=== PATIENT | male | born 1965 | race Caucasian/White ===

== ENCOUNTER 2020-03-04 07:53 | Emergency (ER) | payer OTHER ==
[2020-03-04] MEDS ORDERED: LIDOCAINE 1% INJ 10MG/ML (20 ML MDV) SQ ONE (08:03)
[2020-03-04] MEDS ORDERED: DIPH,PERTUS(ACELL)TETVAC-LF 0.5 ML VIAL IM ONE (08:07)
--- NOTE | 2020-03-04 08:07 | ED ---
Wound/Laceration HPI - General Chief Complaint: Wound/Laceration Stated Complaint: [facility]HS-Finger lac Time Seen by Provider: 03/04/20 08:01 Source: patient, RN notes reviewed, old records reviewed Mode of arrival: ambulatory Limitations: no limitations - History of Present Illness Initial Comments: Patient is a 55 year old male presents to ED for laceration over 5th digit from cutting finger on a knife. Patient works at a local restaurant. Patient has full ROM of finger. Patient is not up-to-date on tetanus vaccine. He reports normal sensation to the finger. - Related Data Allergies Allergy/AdvReac Type Severity Reaction Status Date / Time No Known Allergies Allergy Verified 03/04/20 07:57 Review of Systems ROS Statement: Those systems with pertinent positive or pertinent negative responses have been documented in the HPI. ROS Other: All systems not noted in ROS Statement are negative. Past Medical History Past Medical History: No Reported History History of Any Multi-Drug Resistant Organisms: None Reported Past Surgical History: No Surgical Hx Reported Past Psychological History: No Psychological Hx Reported Smoking Status: Never smoker Past Alcohol Use History: Occasional Past Drug Use History: None Reported General Exam - General Exam Comments Initial Comments: 55 year old male, no distress. Limitations: no limitations General appearance: alert, in no apparent distress Head exam: Present: atraumatic, normocephalic, normal inspection Eye exam: Present: normal appearance, PERRL, EOMI. Absent: scleral icterus, conjunctival injection, periorbital swelling ENT exam: Present: normal exam, mucous membranes moist Neck exam: Present: normal inspection. Absent: tenderness, meningismus, lymphadenopathy Respiratory exam: Present: normal lung sounds bilaterally. Absent: respiratory distress, wheezes, rales, rhonchi, stridor Cardiovascular Exam: Present: regular rate, normal rhythm, normal heart sounds. Absent: systolic murmur, diastolic murmur, rubs, gallop, clicks GI/Abdominal exam: Present: soft, normal bowel sounds. Absent: distended, tenderness, guarding, rebound, rigid Extremities exam: Present: normal inspection, full ROM, normal capillary refill. Absent: tenderness, pedal edema, joint swelling, calf tenderness Left Elbow exam: Present: normal inspection, full ROM Forearm Wrist exam: Present: normal inspection, full ROM Hand Wrist exam: Present: normal inspection, full ROM, laceration (overPIP of 5th digit) Neuro motor exam: Present: wrist extension intact, thumb opposition intact, thumb IP flexion intact, thumb adduction intact, fingers 2-5 abduction intact Vascular: Present: normal capillary refill Back exam: Present: normal inspection Neurological exam: Present: alert, oriented X3, CN II-XII intact Psychiatric exam: Present: normal affect, normal mood Course Vital Signs 03/04/20 07:55 Temperature 98.2 F Pulse Rate 100 Respiratory 18 Rate Blood Pressure 149/83 O2 Sat by Pulse 100 Oximetry Procedures - Laceration Laceration #1 Site: hand (5th digit) Size (cm): 1 Description: linear Depth: simple, single layer Anesthetic Used: lidocaine 1% Anesthesia Technique: local infiltration Amount (mls): 1 Pre-repair: wound explored, irrigated extensively Type of Sutures: nylon Size of Sutures: 5-0 Number of Sutures: 3 Technique: simple, interrupted Patient Tolerated Procedure: well, no complications Medical Decision Making - Medical Decision Making 55-year-old male presents for his arm through the laceration over the left fifth digit. Patient reports that he cut it on a knife out work. He works at a local [email or web address]. He has full range of motion of the finger. He normal sensation distally. Laceration was cleansed and irrigated with saline and iodine solution. Patient's laceration was anesthetized and closed with 3 simple rapid sutures. Patient tolerated procedure well. Discussed monitoring for any signs of infection causing redness swelling or drainage. Discussed return parameters. All questions answered. Disposition Clinical Impression: Finger laceration Disposition: HOME SELF-CARE Condition: Good Instructions (If sedation given, give patient instructions): Care For Your Stitches (ED) Additional Instructions: Please return to the emergency room in 7-10 days to have sutures removed. Please leave wound covered for the first 24-48 hours and then leave open to air after that time. Please use clean soap and water to clean the suture area to prevent scabbing over the top of your sutures. Please watch for any signs of infection which may include but not limited to increased pain, swelling, redness, fever or chills. Please return to the emergency room if any signs of infection do occur. Please return to the emergency room for any other concerns or complications. Is patient prescribed a controlled substance at d/c from ED?: No Referrals: None,Stated [Primary Care Provider] - 1-2 days Time of Disposition: 08:25
[2020-03-04 10:40] VITALS: BP 149/83; PULSE 100; RESP 18; TEMP 98.2
== END 2020-03-04 08:32 | disposition home or self-care (01) ==
LOC: EC 07:53
DX: S61.217A Laceration without foreign body of left little finger without damage to nail, initial encounter (principal); Z23 Encounter for immunization; W26.0XXA Contact with knife, initial encounter; Y92.511 Restaurant or cafe as the place of occurrence of the external cause; Y93.G1 Activity, food preparation and clean up; Y99.0 Civilian activity done for income or pay
CPT/HCPCS: 90715; 99283; 12001; 90471; J2001

== ENCOUNTER 2021-07-06 08:33 | Inpatient (IN) | payer OTHER ==
[2021-07-06] MEDS ORDERED: NITROGLYCERIN OINT 1 INCH/GM PACKET TOPICAL STA (08:45)
[2021-07-06] MEDS ORDERED: SODIUM CHLORIDE 0.9% 500 ML 500 ML IV STA (08:45)
[2021-07-06] MEDS ORDERED: ASPIRIN 81 MG PO STA (08:45)
--- NOTE | 2021-07-06 08:49 | ED ---
General Adult HPI - General Chief complaint: Chest Pain Stated complaint: Chest pain, knee pain Time Seen by Provider: 07/06/21 08:35 Source: patient, RN notes reviewed, old records reviewed Mode of arrival: ambulatory Limitations: no limitations - History of Present Illness Initial comments: This is a 56-year-old male who presents emergency Department states he has no medical problems he takes no medicines. Patient states for the last 2 weeks she's been having generalized achiness but over the last 3 days have significant shortness of breath and chest pain. Patient denies any radiation of the pain. Patient states he did vomit a couple times but is no longer nauseated. Patient states he also had an episode of diarrhea. Patient denies any recent chills but states he thought he might have a fever but never took his temperature. Patient states he only has a slight cough. Patient states he has a history of smoking but quit 16 years ago. Patient denies any headache patient denies numbness weakness. Patient denies lightheadedness dizziness. Patient denies any near syncopal episode. Patient denies any swelling to legs or calf tenderness. Patient is a poor historian he is very vague about when his symptoms started what they feel light. - Related Data Home Medications Medication Instructions Recorded Confirmed No Known Home Medications 07/06/21 07/06/21 Allergies Allergy/AdvReac Type Severity Reaction Status Date / Time No Known Allergies Allergy Verified 07/06/21 09:54 Review of Systems ROS Statement: Those systems with pertinent positive or pertinent negative responses have been documented in the HPI. ROS Other: All systems not noted in ROS Statement are negative. Past Medical History Past Medical History: No Reported History History of Any Multi-Drug Resistant Organisms: None Reported Past Surgical History: No Surgical Hx Reported Past Psychological History: No Psychological Hx Reported Smoking Status: Never smoker Past Alcohol Use History: Occasional Past Drug Use History: None Reported General Exam - General Exam Comments Initial Comments: GENERAL: Patient is well-developed and well-nourished. Patient is nontoxic and well- hydrated and is in mild distress. ENT: Neck is soft and supple. No significant lymphadenopathy is noted. Oropharynx is clear. Moist mucous membranes. Neck has full range of motion without eliciting any pain. EYES: The sclera were anicteric and conjunctiva were pink and moist. Extraocular movements were intact and pupils were equal round and reactive to light. Eyelids were unremarkable. PULMONARY: Unlabored respirations. Good breath sounds bilaterally. No audible rales rhonchi or wheezing was noted. CARDIOVASCULAR: There is a regular rate and rhythm without any murmurs gallops or rubs. ABDOMEN: Soft and nontender with normal bowel sounds. SKIN: Skin is clear with no lesions or rashes and otherwise unremarkable. NEUROLOGIC: Patient is alert and oriented x3. Cranial nerves II through XII are grossly intact. Motor and sensory are also intact. Normal speech, volume and content. Symmetrical smile. MUSCULOSKELETAL: Normal extremities with adequate strength and full range of motion. LYMPHATICS: No significant lymphadenopathy is noted PSYCHIATRIC: Normal psychiatric evaluation. Limitations: no limitations Course Vital Signs 07/06/21 07/06/21 07/06/21 08:35 09:30 10:00 Temperature 98.4 F Pulse Rate 98 86 85 Respiratory 18 15 18 Rate Blood Pressure 168/93 141/90 137/99 O2 Sat by Pulse 98 97 97 Oximetry Medical Decision Making - Medical Decision Making EKG shows normal sinus rhythm at 90 bpm UT interval is 156 QRS is 80 QT interval 352 QTC is 4:30. Patient's EKG shows no ST segment elevation or depression. Chest x-ray shows no acute abnormality. Patient's blood pressure was elevated slightly to give 10 of hydralazine. Patient was also very anxious but since I gave him 1 of Ativan. I spoke with some physicians agreed to admit the patient admitted the patient wrote admitting orders. - Lab Data Result diagrams: 07/06/21 09:00 07/06/21 09:00 Lab Results 07/06/21 07/06/21 07/06/21 Range/Units 09:00 09:00 09:00 WBC 5.9 (3.8-10.6) k/uL RBC 4.11 L (4.30-5.90) m/uL Hgb 13.4 (13.0-17.5) gm/dL Hct 39.9 (39.0-53.0) % MCV 97.0 (80.0-100.0) fL MCH 32.7 (25.0-35.0) pg MCHC 33.7 (31.0-37.0) g/dL RDW 13.7 (11.5-15.5) % Plt Count 289 (150-450) k/uL MPV 8.2 Neutrophils % 51 % Lymphocytes % 30 % Monocytes % 6 % Eosinophils % 9 % Basophils % 1 % Neutrophils # 3.0 (1.3-7.7) k/uL Lymphocytes # 1.8 (1.0-4.8) k/uL Monocytes # 0.4 (0-1.0) k/uL Eosinophils # 0.6 (0-0.7) k/uL Basophils # 0.0 (0-0.2) k/uL PT 9.7 (9.0-12.0) sec INR 0.9 (<1.2) APTT 25.7 (22.0-30.0) sec D-Dimer <0.17 (<0.60) mg/L FEU Sodium 126 L (137-145) mmol/L Potassium 4.5 (3.5-5.1) mmol/L Chloride 96 L (98-107) mmol/L Carbon Dioxide 17 L (22-30) mmol/L Anion Gap 13 mmol/L BUN 8 L (9-20) mg/dL Creatinine 0.57 L (0.66-1.25) mg/dL Est GFR (CKD-EPI)AfAm >90 (>60 ml/min/1.73 sqM) Est GFR (CKD-EPI)NonAf >90 (>60 ml/min/1.73 sqM) Glucose 110 H (74-99) mg/dL Calcium 9.1 (8.4-10.2) mg/dL Magnesium 1.7 (1.6-2.3) mg/dL Total Bilirubin 0.7 (0.2-1.3) mg/dL AST 51 (17-59) U/L ALT 32 (4-49) U/L Alkaline Phosphatase 52 (38-126) U/L Troponin I (0.000-0.034) ng/mL Total Protein 7.5 (6.3-8.2) g/dL Albumin 4.4 (3.5-5.0) g/dL Coronavirus (PCR) (Not Detectd) 07/06/21 07/06/21 Range/Units 09:00 09:00 WBC (3.8-10.6) k/uL RBC (4.30-5.90) m/uL Hgb (13.0-17.5) gm/dL Hct (39.0-53.0) % MCV (80.0-100.0) fL MCH (25.0-35.0) pg MCHC (31.0-37.0) g/dL RDW (11.5-15.5) % Plt Count (150-450) k/uL MPV Neutrophils % % Lymphocytes % % Monocytes % % Eosinophils % % Basophils % % Neutrophils # (1.3-7.7) k/uL Lymphocytes # (1.0-4.8) k/uL Monocytes # (0-1.0) k/uL Eosinophils # (0-0.7) k/uL Basophils # (0-0.2) k/uL PT (9.0-12.0) sec INR (<1.2) APTT (22.0-30.0) sec D-Dimer (<0.60) mg/L FEU Sodium (137-145) mmol/L Potassium (3.5-5.1) mmol/L Chloride (98-107) mmol/L Carbon Dioxide (22-30) mmol/L Anion Gap mmol/L BUN (9-20) mg/dL Creatinine (0.66-1.25) mg/dL Est GFR (CKD-EPI)AfAm (>60 ml/min/1.73 sqM) Est GFR (CKD-EPI)NonAf (>60 ml/min/1.73 sqM) Glucose (74-99) mg/dL Calcium (8.4-10.2) mg/dL Magnesium (1.6-2.3) mg/dL Total Bilirubin (0.2-1.3) mg/dL AST (17-59) U/L ALT (4-49) U/L Alkaline Phosphatase (38-126) U/L Troponin I <0.012 (0.000-0.034) ng/mL Total Protein (6.3-8.2) g/dL Albumin (3.5-5.0) g/dL Coronavirus (PCR) Not Detected (Not Detectd) Disposition Clinical Impression: Chest pain, Hypertensive urgency Disposition: ADMITTED IP TO THIS [facility] Referrals: None,Stated [Primary Care Provider] - 1-2 days Time of Disposition: 11:04
--- NOTE | 2021-07-06 09:35 | XR ---
EXAMINATION TYPE: XR chest 2V DATE OF EXAM: 07/06/2021 COMPARISON: NONE TECHNIQUE: PA and lateral views submitted. HISTORY: Chest pain FINDINGS: The lungs are clear and there is no pneumothorax, pleural effusion, or focal pneumonia. Heart size normal. No overt failure. Hypertrophic change of the spine. IMPRESSION: 1. No acute process.
[2021-07-06 09:36] LABS: Basophils % (A) 1 %; Eosinophils # (A) 0.6 k/uL (0-0.7); Eosinophils % (A) 9 %; HCT 39.9 % (39.0-53.0); HGB 13.4 gm/dL (13.0-17.5); Lymphocytes # (A) 1.8 k/uL (1.0-4.8); Lymphocytes % (A) 30 %; MCH 32.7 pg (25.0-35.0); MCHC 33.7 g/dL (31.0-37.0); Mean Platelet Volume 8.2; Monocytes # (A) 0.4 k/uL (0-1.0); Monocytes % (A) 6 %; Neutrophils % (A) 51 %; Platelet Count 289 k/uL (150-450); RBC 4.11 m/uL (4.30-5.90); RDW 13.7 % (11.5-15.5); WBC 5.9 k/uL (3.8-10.6)
[2021-07-06 09:52] LABS: INR 0.9 (<1.2); Partial Thromboplastin Time 25.7 sec (22.0-30.0); Prothrombin Time 9.7 sec (9.0-12.0)
[2021-07-06 10:01] LABS: ALT 32 U/L (4-49); African American GFR (CKD) >90 (>60 ml/min/1.73 sqM); Albumin 4.4 g/dL (3.5-5.0); Anion Gap 13 mmol/L; Blood Urea Nitrogen 8 mg/dL (9-20); Calcium 9.1 mg/dL (8.4-10.2); Carbon Dioxide 17 mmol/L (22-30); Chloride 96 mmol/L (98-107); Glucose 110 mg/dL (74-99); Non-African American GFR(CKD) >90 (>60 ml/min/1.73 sqM); Sodium 126 mmol/L (137-145); Total Bilirubin 0.7 mg/dL (0.2-1.3); Total Protein 7.5 g/dL (6.3-8.2)
[2021-07-06 10:12] LABS: Potassium 4.5 mmol/L (3.5-5.1)
[2021-07-06 10:13] LABS: AST 51 U/L (17-59); Alkaline Phosphatase 52 U/L (38-126); Magnesium 1.7 mg/dL (1.6-2.3)
[2021-07-06] MEDS ORDERED: LORazepam 2 MG/ML INJ IV STA (11:02)
[2021-07-06] MEDS ORDERED: hydrALAZINE HCL 20 MG/ML 1 ML VIAL IVP STA (11:02)
[2021-07-06] MEDS ORDERED: NITROGLYCERIN SL TABS 0.4 MG TAB SUBLINGUAL PRN (11:04)
[2021-07-06] MEDS ORDERED: ACETAMINOPHEN TAB 325 MG TAB PO PRN (14:01)
[2021-07-06] MEDS ORDERED: NALOXONE 0.4 MG/ML 1 ML VIAL IV PRN (14:01)
[2021-07-06] MEDS ORDERED: ONDANSETRON 4 MG/2 ML VIAL IVP PRN (14:01)
--- NOTE | 2021-07-06 14:01 | P.HPIM ---
History of Present Illness H&P Date: 07/06/21 Chief Complaint: chest pain and sob 56-year-old male with no known PMH presenting to the ER due to chest pain and sob. Patient states for the last 2 weeks she's been having generalized achiness but over the last 3 days have significant shortness of breath and chest pain. Pain occured while he is at work. Patient states he did vomit a couple times but is no longer nauseated. Also had an episode of diarrhea. He is a poor historian and hard to get a history from. Denied having a fever. Has a little cough not sure if new. No lightheadedness or syncope. Also admits to left knee weakness, states that he cannot stand on it. No swelling or pain. Evaluation in the emergency department revealed slight hypertension with blood pressure of 140-150 systolic. Rest of vitals were okay. Labs significant for low sodium at 126. Chloride 96, bicarb 17. CBC within normal limits. Coag's normal. Chest x-ray and EKG were also normal. Review of Systems Complete review of system performed, pertinent positives per HPI, otherwise negative Past Medical History Past Medical History: No Reported History History of Any Multi-Drug Resistant Organisms: None Reported Past Surgical History: No Surgical Hx Reported Past Psychological History: No Psychological Hx Reported Smoking Status: Never smoker Past Alcohol Use History: Occasional Past Drug Use History: None Reported Medications and Allergies Home Medications Medication Instructions Recorded Confirmed Type No Known Home Medications 07/06/21 07/06/21 History Allergies Allergy/AdvReac Type Severity Reaction Status Date / Time No Known Allergies Allergy Verified 07/06/21 09:54 Physical Exam Vitals: Vital Signs Temp Pulse Resp BP Pulse Ox 07/06/21 12:00 92 17 159/99 98 07/06/21 11:30 90 15 149/115 98 07/06/21 11:00 84 17 152/98 97 07/06/21 10:00 85 18 137/99 97 07/06/21 09:30 86 15 141/90 97 07/06/21 08:35 98.4 F 98 18 168/93 98 Intake and Output 07/05/21 07/06/21 07/06/21 22:59 06:59 14:59 Other: Weight 65.771 kg Constitutional: No acute distress, conversant, pleasant Eyes:Anicteric sclerae, moist conjunctiva, no lid-lag, PERRLA, ENMT: Oropharynx clear, no erythema, exudates Neck: Supple, FROM, no masses, or JVD, No carotid bruits, No thyromegaly Lungs: Clear to auscultation, Clear to percussion, Normal respiratory effort, no accessory muscle use Cardiovascular: Heart regular in rate and rhythm, No murmurs, gallops, or rubs, No peripheral edema Abdominal: Soft, Nontender, no guarding, rebound or rigidity, Normoactive bowel sounds, No hepatomegaly, No splenomegaly, No palpable mass Skin: Normal temperature, tone, texture, turgor, no induration, No subcutaneous nodules, No rash, lesions, No ulcers Extremities: No digital cyanosis, No clubbing, Pedal pulses intact and symmetrical, Radial pulses intact and symmetrical, No calf tenderness Psychiatric: Alert and oriented to person, place and time, appropriate affect, intact judgement Neuro: Muscles Strength 5/5 in all 4 extremities, Sensation to light touch grossly present throughout, Cranial nerves II-XII grossly intact, no focal sensory deficits Constitutional: No acute distress, conversant, pleasant Eyes:Anicteric sclerae, moist conjunctiva, no lid-lag, PERRLA, ENMT: Oropharynx clear, no erythema, exudates Neck: Supple, FROM, no masses, or JVD, No carotid bruits, No thyromegaly Lungs: Clear to auscultation, Clear to percussion, Normal respiratory effort, no accessory muscle use Cardiovascular: Heart regular in rate and rhythm, No murmurs, gallops, or rubs, No peripheral edema Abdominal: Soft, Nontender, no guarding, rebound or rigidity, Normoactive bowel sounds, No hepatomegaly, No splenomegaly, No palpable mass Skin: Normal temperature, tone, texture, turgor, no induration, No subcutaneous nodules, No rash, lesions, No ulcers Extremities: No digital cyanosis, No clubbing, Pedal pulses intact and symmetrical, Radial pulses intact and symmetrical, No calf tenderness Psychiatric: Alert and oriented to person, place and time, appropriate affect, intact judgement Neuro: Muscles Strength 5/5 in all 4 extremities, Sensation to light touch grossly present throughout, Cranial nerves II-XII grossly intact, no focal sensory deficits Results CBC & Chem 7: 07/06/21 09:00 07/06/21 09:00 Labs: Abnormal Lab Results - Last 24 Hours (Table) 07/06/21 07/06/21 Range/Units 09:00 09:00 RBC 4.11 L (4.30-5.90) m/uL Sodium 126 L (137-145) mmol/L Chloride 96 L (98-107) mmol/L Carbon Dioxide 17 L (22-30) mmol/L BUN 8 L (9-20) mg/dL Creatinine 0.57 L (0.66-1.25) mg/dL Glucose 110 H (74-99) mg/dL Assessment and Plan Plan: Chest pain or shortness of breath Cycle troponins Consult cardiology Telemetry Hyponatremia Check plasma and urine osmolalities Check serum sodium Left knee weakness Order x-ray of the left knee Admit to inpatient, expected length of stay more than 2 midnights
[2021-07-06] MEDS: NITROGLYCERIN OINT 1 INCH/GM PACKET TOPICAL SCH ×2 (15:18→18:36)
[2021-07-06] MEDS ORDERED: LABETALOL 5 MG/ML VIAL MDV IVP STA (18:06)
[2021-07-07] MEDS: NITROGLYCERIN OINT 1 INCH/GM PACKET TOPICAL SCH ×3 (01:39→11:26)
[2021-07-07 02:31] VITALS: RESP 18
[2021-07-07 06:38] LABS: Basophils % (A) 1 %; Eosinophils # (A) 0.4 k/uL (0-0.7); Eosinophils % (A) 5 %; HCT 43.2 % (39.0-53.0); HGB 14.1 gm/dL (13.0-17.5); Lymphocytes # (A) 1.3 k/uL (1.0-4.8); Lymphocytes % (A) 17 %; MCH 32.1 pg (25.0-35.0); MCHC 32.7 g/dL (31.0-37.0); Mean Platelet Volume 7.9; Monocytes # (A) 0.5 k/uL (0-1.0); Monocytes % (A) 6 %; Neutrophils # (A) 5.3 k/uL (1.3-7.7); Neutrophils % (A) 69 %; Platelet Count 286 k/uL (150-450); RBC 4.41 m/uL (4.30-5.90); RDW 13.8 % (11.5-15.5); WBC 7.7 k/uL (3.8-10.6)
[2021-07-07 06:58] LABS: African American GFR (CKD) >90 (>60 ml/min/1.73 sqM); Anion Gap 8 mmol/L; Blood Urea Nitrogen 8 mg/dL (9-20); Calcium 9.4 mg/dL (8.4-10.2); Carbon Dioxide 21 mmol/L (22-30); Chloride 102 mmol/L (98-107); Glucose 130 mg/dL (74-99); Magnesium 2.1 mg/dL (1.6-2.3); Non-African American GFR(CKD) >90 (>60 ml/min/1.73 sqM); Phosphorus 3.6 mg/dL (2.5-4.5); Potassium 4.5 mmol/L (3.5-5.1); Sodium 131 mmol/L (137-145)
[2021-07-07 07:44] VITALS: TEMP 98
[2021-07-07] MEDS ORDERED: ASPIRIN 325 MG TAB PO SCH (09:00)
--- NOTE | 2021-07-07 11:00 | ECHOF ---
Referral Reason:chest pain MEASUREMENTS -------- HEIGHT: 170.2 cm WEIGHT: 65.8 kg BP: RVIDd: 3.1 cm (< 3.3) IVSd: 1.2 cm (0.6 - 1.1) LVIDd: 3.5 cm (3.9 - 5.3) LVPWd: 1.3 cm (0.6 - 1.1) IVSs: 1.5 cm LVIDs: 3.1 cm LVPWs: 1.2 cm LA Diam: 3.0 cm (2.7 - 3.8) LAESV Index (A-L): 16.03 ml/m Ao Diam: 3.4 cm (2.0 - 3.7) AV Cusp: 1.5 cm (1.5 - 2.6) LA Diam: 3.1 cm (2.7 - 3.8) MV EXCURSION: 19.089 mm (> 18.000) MV EF SLOPE: 103 mm/s (70 - 150) EPSS: 0.8 cm MV E Eh: 0.51 m/s MV DecT: 241 ms MV A Eh: 1.22 m/s MV E/A Ratio: 0.42 RAP: 5.00 mmHg RVSP: 14.14 mmHg FINDINGS -------- Sinus rhythm. This was a technically adequate study. The left ventricular size is normal. There is borderline concentric left ventricular hypertrophy. Overall left ventricular systolic function is normal with, an EF between 55 - 60 %. The diastolic filling pattern is normal for the age of the patient 6.52. The right ventricle is normal in size. Normal LA size by volume 22+/-6 ml/m2. The right atrial size is normal. The aortic valve is trileaflet, and appears structurally normal. No aortic stenosis or regurgitation. The mitral valve is normal. Mild mitral regurgitation is present. The tricuspid valve appears structurally normal. Mild tricuspid regurgitation present. Right vent ricular systolic pressure is normal at < 35 mmHg. The pulmonic valve was not well visualized. The aortic root size is normal. There is no pericardial effusion. CONCLUSIONS -------- 1. There is borderline concentric left ventricular hypertrophy. 2. Overall left ventricular systolic function is normal with, an EF between 55 - 60 %. 3. Normal LA size by volume 22+/-6 ml/m2. 4. The aortic valve is trileaflet, and appears structurally normal. No aortic stenosis or regurgitati on. 5. Mild mitral regurgitation is present. 6. Mild tricuspid regurgitation present. 7. There is no pericardial effusion. MANAGER [employer]: Joy Mccloud RDCS
--- NOTE | 2021-07-07 11:02 | P.CRDCN ---
History of Present Illness Consult date: 07/07/21 History of present illness: This is a 56-year-old gentleman with no significant past medical history who was admitted to the hospital with complaints of chest pain and shortness of breath. Patient complains that history a lot of hard work and that is too much. His symptoms are mostly exertional in nature. He is found to be hypertensive on admission, requiring IV labetalol. Patient is also found hyponatremic. His EKGs did not reveal any acute changes. Chest x-ray did not reveal any significant abnormalities. His cardiac enzymes are negative. Patient doesn't have any previous history of coronary artery disease, cardiac arrhythmia or CHF. On physical examination, patient does have some expiratory rhonchi. The etiology of symptoms is not clear. We are going to get an echocardiogram. If echo function is normal, I would recommend that patient have pulmonary evaluation because she doesn't have some rhonchi in the may have underlying COPD. He also required a stress test which can be done as an outpatient. Continue measures to correct his hyponatremia Review of Systems As per the chart Past Medical History Past Medical History: No Reported History History of Any Multi-Drug Resistant Organisms: None Reported Past Surgical History: No Surgical Hx Reported Past Psychological History: No Psychological Hx Reported Smoking Status: Never smoker Past Alcohol Use History: Occasional Additional Past Alcohol Use History / Comment(s): occasional alcohol use Past Drug Use History: Marijuana Additional Drug Use History / Comment(s): occasional marijuana use Medications and Allergies Home Medications Medication Instructions Recorded Confirmed Type No Known Home Medications 07/06/21 07/06/21 History Allergies Allergy/AdvReac Type Severity Reaction Status Date / Time No Known Allergies Allergy Verified 07/06/21 09:54 Physical Exam Vitals: Vital Signs Temp Pulse Pulse Resp BP BP Pulse Ox 07/07/21 08:38 97 07/07/21 07:43 98.0 F 94 18 158/91 98 07/07/21 04:30 98 F 87 18 157/87 98 07/06/21 23:00 98 F 89 18 140/82 98 07/06/21 20:23 98.6 F 96 19 151/83 98 07/06/21 18:37 98 18 149/99 98 07/06/21 17:26 98.8 F 114 H 18 171/101 97 07/06/21 15:00 110 H 19 155/95 97 07/06/21 14:30 105 H 13 159/92 97 07/06/21 14:00 105 H 22 156/90 97 07/06/21 13:30 103 H 15 152/89 96 07/06/21 12:00 92 17 159/99 98 07/06/21 11:30 90 15 149/115 98 07/06/21 11:00 84 17 152/98 97 Intake and Output 07/06/21 07/07/21 07/07/21 22:59 06:59 14:59 Intake Total 0 Balance 0 Intake: Oral 0 Other: Voiding Method Toilet Toilet Toilet # Voids 1 1 # Bowel Movements 1 Weight 65.771 kg GENERAL EXAM: Patient is alert and oriented and doesn't appear to be in any acute distress HEENT: Normocephalic. Normal reaction of pupils, equal size, normal range of ex traocular motion. No erythema or exudates in the throat. NECK: No masses, no nuchal rigidity. CHEST: No chest wall deformity. LUNGS: Mild diffuse rhonchi HEART: S1 and S2 normal with no audible mumurs or gallops. Regular rhythm, femorals equal on both sides.. ABDOMEN: No hepatosplenomegaly, normal bowel sounds, no guarding or rigidity. SKIN: No rashes CENTRAL NERVOUS SYSTEM: No focal deficits. EXTREMITIES: No cyanosis, clubbing or edema. Results 07/07/21 06:04 07/07/21 06:04 Cardiac Enzymes 07/06/21 07/06/21 Range/Units 12:22 15:10 Troponin I <0.012 <0.012 (0.000-0.034) ng/mL CBC 07/07/21 Range/Units 06:04 WBC 7.7 (3.8-10.6) k/uL RBC 4.41 (4.30-5.90) m/uL Hgb 14.1 (13.0-17.5) gm/dL Hct 43.2 (39.0-53.0) % Plt Count 286 (150-450) k/uL Comprehensive Metabolic Panel 07/07/21 Range/Units 06:04 Sodium 131 L (137-145) mmol/L Potassium 4.5 (3.5-5.1) mmol/L Chloride 102 (98-107) mmol/L Carbon Dioxide 21 L (22-30) mmol/L BUN 8 L (9-20) mg/dL Creatinine 0.65 L (0.66-1.25) mg/dL Glucose 130 H (74-99) mg/dL Calcium 9.4 (8.4-10.2) mg/dL Current Medications Generic Name Dose Route Start Last Admin Trade Name Freq PRN Reason Stop Dose Admin Acetaminophen 650 mg 07/06/21 14:01 Acetaminophen Tab 325 Mg Tab PO Q6HR PRN Mild Pain or Fever > 100.5 Aspirin 325 mg 07/07/21 09:00 07/07/21 07:41 Aspirin 325 Mg Tab PO 325 mg DAILY KATE Administration Naloxone HCl 0.2 mg 07/06/21 14:01 Naloxone 0.4 Mg/Ml 1 Ml Vial IV Q2M PRN Opioid Reversal Nitroglycerin 0.4 mg 07/06/21 11:04 Nitroglycerin Sl Tabs 0.4 Mg Tab SUBLINGUAL Q5M PRN Chest Pain Nitroglycerin 1 inch 07/06/21 12:00 07/07/21 06:27 Nitroglycerin Oint 1 Inch/Gm Packet TOPICAL Not Given Q6HR KATE Ondansetron HCl 4 mg 07/06/21 14:01 07/06/21 17:29 Ondansetron 4 Mg/2 Ml Vial IVP 4 mg Q8HR PRN Administration Nausea And Vomiting Intake and Output 07/06/21 07/07/21 07/07/21 22:59 06:59 14:59 Intake Total 0 Balance 0 Intake: Oral 0 Other: Voiding Method Toilet Toilet Toilet # Voids 1 1 # Bowel Movements 1 Weight 65.771 kg 07/07/21 06:04 07/07/21 06:04 EKG Interpretations (text) Sinus rhythm Assessment and Plan (1) Chest pain Current Visit: Yes Status: Acute Code(s): R07.9 - CHEST PAIN, UNSPECIFIED SNOMED Code(s): 11827292 (2) Hypertensive urgency Current Visit: Yes Status: Acute Code(s): I16.0 - HYPERTENSIVE URGENCY SNOMED Code(s): 769873828 Plan: Start him on accommodation of YA inhibitor and calcium channel benjamin for control of his blood pressure. Echocardiogram. Pulmonary evaluation. Stress test which could be done as an outpatient
[2021-07-07] MEDS ORDERED: amLODIPine 5 MG TAB PO SCH (11:15)
[2021-07-07] MEDS ORDERED: METOPROLOL TARTRATE 25 MG TAB PO SCH (11:15)
[2021-07-07 11:22] LABS: Chol/HDL Ratio 2.75 Ratio; LDL Cholesterol,Calculated 146.1 mg/dL (0.0-131.0); VLDL Calculation 12.46 mg/dL (5.00-40.00)
[2021-07-07 11:28] VITALS: BP 145/83; PULSE 82
--- NOTE | 2021-07-07 13:56 | P.DS ---
Providers Date of admission: 07/06/21 11:06 Expected date of discharge: 07/07/21 Attending physician: Randi Shetty MD Consults: 07/06/21 11:04 Consult Physician Urgent Consulting Provider: [facility] Consult Reason/Comments: Chest pain, hypertensive urgency Do you want consulting provider notified?: Yes Primary care physician: Stated None Hospital Course: 56-year-old male with no known PMH presenting to the ER due to chest pain and sob. Patient states for the last 2 weeks she's been having generalized achiness but over the last 3 days have significant shortness of breath and chest pain. Pain occured while he is at work. Patient states he did vomit a couple times but is no longer nauseated. Also had an episode of diarrhea. He is a poor historian and hard to get a history from. Denied having a fever. Had a little cough not sure if new. No lightheadedness or syncope. Also admits to left knee weakness, states that he cannot stand on it. No swelling or pain. Evaluation in the emergency department revealed slight hypertension with blood pressure of 140-150 systolic. Rest of vitals were okay. Labs significant for low sodium at 126. Chloride 96, bicarb 17. CBC within normal limits. Coag's normal. Chest x-ray and EKG were also normal. Patient was admitted, was seen by cardiology. Cardiology recommended doing an echocardiogram which showed ejection fraction 55%. For hypertension he was started on Norvasc and Lopressor. Troponin was cycled, was negative. Cardiopulmonary recommended pulmonary evaluation for possible COPD causing his shortness of breath. Cardiology also advised outpatient stress testing. He is currently asymptomatic. ACS was ruled out. Will be discharged home in a stable condition. Instructions to follow-up with pulmonary and cardiology as well as primary care physician were given to the patient. Plan - Discharge Summary Discharge Rx Participant: Yes New Discharge Prescriptions: New amLODIPine [Norvasc] 5 mg PO DAILY 30 Days #30 tab Metoprolol Tartrate [Lopressor] 25 mg PO BID 30 Days #60 tab Discharge Medication List Metoprolol Tartrate [Lopressor] 25 mg PO BID 30 Days #60 tab 07/07/21 [Rx] amLODIPine [Norvasc] 5 mg PO DAILY 30 Days #30 tab 07/07/21 [Rx] Follow up Appointment(s)/Referral(s): None,Stated [Primary Care Provider] - 1-2 days Eric Palmer MD [STAFF PHYSICIAN] - 1 Week Anders Winkler MD [STAFF PHYSICIAN] - 1 Week Abran Wellington [STAFF PHYSICIAN] - 1 Week
== END 2021-07-07 14:35 | disposition home or self-care (01) | DRG 305 ==
LOC: EC 08:33 → 3SCARD 11:06
PROVIDERS: ADMIT Internal Medicine; ATTEND Internal Medicine
DX: I16.0 Hypertensive urgency (principal); E87.1 Hypo-osmolality and hyponatremia; R79.89 Other specified abnormal findings of blood chemistry; R07.9 Chest pain, unspecified; I10 Essential (primary) hypertension; R11.2 Nausea with vomiting, unspecified; R53.1 Weakness; Z87.891 Personal history of nicotine dependence; Z20.822 Contact with and (suspected) exposure to COVID-19
CPT/HCPCS: 36415; 71046; 80048; 80053; 80061; 83735; 83930; 84100; 84484; 85025; 85379; 85610; 85730; 87635; 93005; 93306; 96360; 96361; 99285

== ENCOUNTER 2022-01-24 07:28 | Observation (INO) | payer OTHER ==
[2022-01-24] MEDS ORDERED: ASPIRIN 81 MG PO STA (07:47)
[2022-01-24] MEDS ORDERED: NITROGLYCERIN SL TABS 0.4 MG TAB SUBLINGUAL STA ×3 (07:47)
--- NOTE | 2022-01-24 07:49 | ED ---
General Adult HPI - General Chief complaint: Chest Pain Stated complaint: Chest pain Time Seen by Provider: 01/24/22 07:40 Source: patient, RN notes reviewed Mode of arrival: wheelchair Limitations: no limitations - History of Present Illness Initial comments: Patient is a pleasant 56-year-old male presenting to the emergency Department with chest discomfort. Onset of symptoms was around a week ago. Discomfort is rated 6/10. Discomfort feels like tightness with radiation to the left arm. Patient has some associated dyspnea. Patient has been sweaty at times. No nausea. Patient did have similar symptoms around a year ago and was told he had a mild heart attack. No leg pain or leg swelling. - Related Data Home Medications Medication Instructions Recorded Confirmed Ainsley Back & Body 1 - 2 tab PO QID PRN 01/24/22 01/24/22 Ibuprofen [Advil] 200 - 400 mg PO QID PRN 01/24/22 01/24/22 Allergies Allergy/AdvReac Type Severity Reaction Status Date / Time No Known Allergies Allergy Verified 01/24/22 08:53 Review of Systems ROS Statement: Those systems with pertinent positive or pertinent negative responses have been documented in the HPI. ROS Other: All systems not noted in ROS Statement are negative. Constitutional: Denies: fever Eyes: Denies: eye pain ENT: Denies: ear pain Respiratory: Reports: as per HPI. Denies: cough Cardiovascular: Reports: as per HPI, chest pain Endocrine: Denies: fatigue Gastrointestinal: Denies: abdominal pain Genitourinary: Denies: dysuria Musculoskeletal: Denies: back pain Skin: Denies: rash Neurological: Denies: weakness Past Medical History Past Medical History: No Reported History History of Any Multi-Drug Resistant Organisms: None Reported Past Surgical History: No Surgical Hx Reported Past Psychological History: No Psychological Hx Reported Smoking Status: Never smoker Past Alcohol Use History: Occasional Past Drug Use History: Marijuana General Exam Limitations: no limitations General appearance: alert, in no apparent distress Head exam: Present: normocephalic Eye exam: Present: normal appearance Neck exam: Present: normal inspection Respiratory exam: Present: normal lung sounds bilaterally, chest wall tenderness Cardiovascular Exam: Present: regular rate, normal rhythm Expanded Peripheral pulses: 2+: Radial (R), Radial (L), Posterior Tibialis (R), Posterior Tibialis (L) GI/Abdominal exam: Present: soft. Absent: tenderness Extremities exam: Present: normal inspection. 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 MO 172. QRS 85. QT 359. QTC 395. Normal axis. Normal QRS. No acute ST change. Medical Decision Making - Medical Decision Making Patient reevaluated and updated. Case discussed with Dr. Zuñiga, who will admit covering hospital call. - Lab Data Result diagrams: 01/24/22 08:30 01/24/22 08:30 Lab Results 01/24/22 01/24/22 01/24/22 Range/Units 08:30 08:30 08:30 WBC 5.1 (3.8-10.6) k/uL RBC 4.20 L (4.30-5.90) m/uL Hgb 14.0 (13.0-17.5) gm/dL Hct 41.3 (39.0-53.0) % MCV 98.4 (80.0-100.0) fL MCH 33.3 (25.0-35.0) pg MCHC 33.8 (31.0-37.0) g/dL RDW 13.8 (11.5-15.5) % Plt Count 285 (150-450) k/uL MPV 7.7 Neutrophils % 58 % Lymphocytes % 26 % Monocytes % 4 % Eosinophils % 9 % Basophils % 1 % Neutrophils # 3.0 (1.3-7.7) k/uL Lymphocytes # 1.3 (1.0-4.8) k/uL Monocytes # 0.2 (0-1.0) k/uL Eosinophils # 0.5 (0-0.7) k/uL Basophils # 0.1 (0-0.2) k/uL PT 10.1 (9.0-12.0) sec INR 0.9 (<1.2) APTT 23.5 (22.0-30.0) sec D-Dimer 0.45 (<0.60) mg/L FEU Sodium 137 (137-145) mmol/L Potassium 4.1 (3.5-5.1) mmol/L Chloride 104 (98-107) mmol/L Carbon Dioxide 22 (22-30) mmol/L Anion Gap 11 mmol/L BUN 8 L (9-20) mg/dL Creatinine 0.79 (0.66-1.25) mg/dL Est GFR (CKD-EPI)AfAm >90 (>60 ml/min/1.73 sqM) Est GFR (CKD-EPI)NonAf >90 (>60 ml/min/1.73 sqM) Glucose 133 H (74-99) mg/dL Calcium 8.4 (8.4-10.2) mg/dL Magnesium 2.2 (1.6-2.3) mg/dL Total Bilirubin 0.4 (0.2-1.3) mg/dL AST 122 H (17-59) U/L ALT 79 H (4-49) U/L Alkaline Phosphatase 69 (38-126) U/L Troponin I (0.000-0.034) ng/mL Total Protein 6.9 (6.3-8.2) g/dL Albumin 4.0 (3.5-5.0) g/dL Serum Alcohol 161 mg/dL 01/24/22 Range/Units 08:30 WBC (3.8-10.6) k/uL RBC (4.30-5.90) m/uL Hgb (13.0-17.5) gm/dL Hct (39.0-53.0) % MCV (80.0-100.0) fL MCH (25.0-35.0) pg MCHC (31.0-37.0) g/dL RDW (11.5-15.5) % Plt Count (150-450) k/uL MPV Neutrophils % % Lymphocytes % % Monocytes % % Eosinophils % % Basophils % % Neutrophils # (1.3-7.7) k/uL Lymphocytes # (1.0-4.8) k/uL Monocytes # (0-1.0) k/uL Eosinophils # (0-0.7) k/uL Basophils # (0-0.2) k/uL PT (9.0-12.0) sec INR (<1.2) APTT (22.0-30.0) sec D-Dimer (<0.60) mg/L FEU Sodium (137-145) mmol/L Potassium (3.5-5.1) mmol/L Chloride (98-107) mmol/L Carbon Dioxide (22-30) mmol/L Anion Gap mmol/L BUN (9-20) mg/dL Creatinine (0.66-1.25) mg/dL Est GFR (CKD-EPI)AfAm (>60 ml/min/1.73 sqM) Est GFR (CKD-EPI)NonAf (>60 ml/min/1.73 sqM) Glucose (74-99) mg/dL Calcium (8.4-10.2) mg/dL Magnesium (1.6-2.3) mg/dL Total Bilirubin (0.2-1.3) mg/dL AST (17-59) U/L ALT (4-49) U/L Alkaline Phosphatase (38-126) U/L Troponin I <0.012 (0.000-0.034) ng/mL Total Protein (6.3-8.2) g/dL Albumin (3.5-5.0) g/dL Serum Alcohol mg/dL - Radiology Data Radiology results: image reviewed (Chest x-ray shows no acute process) Disposition Clinical Impression: Chest pain Disposition: ADMITTED IP TO THIS [facility] Is patient prescribed a controlled substance at d/c from ED?: No Referrals: None,Stated [Primary Care Provider] - 1-2 days Time of Disposition: 10:30
--- NOTE | 2022-01-24 08:26 | XR ---
EXAMINATION TYPE: XR chest 2V DATE OF EXAM: 01/24/2022 COMPARISON: 07/06/2021 INDICATION: Chest pain TECHNIQUE: Frontal and lateral views of the chest are obtained. FINDINGS: The heart size is normal. The pulmonary vasculature is normal. The lungs are clear. IMPRESSION: 1. No acute pulmonary process.
[2022-01-24 08:44] LABS: Basophils # (A) 0.1 k/uL (0-0.2); Basophils % (A) 1 %; Eosinophils # (A) 0.5 k/uL (0-0.7); Eosinophils % (A) 9 %; HCT 41.3 % (39.0-53.0); Lymphocytes # (A) 1.3 k/uL (1.0-4.8); Lymphocytes % (A) 26 %; MCH 33.3 pg (25.0-35.0); MCHC 33.8 g/dL (31.0-37.0); MCV 98.4 fL (80.0-100.0); Mean Platelet Volume 7.7; Monocytes # (A) 0.2 k/uL (0-1.0); Monocytes % (A) 4 %; Neutrophils % (A) 58 %; Platelet Count 285 k/uL (150-450); RDW 13.8 % (11.5-15.5); WBC 5.1 k/uL (3.8-10.6)
[2022-01-24 08:56] LABS: INR 0.9 (<1.2)
[2022-01-24 08:57] LABS: Partial Thromboplastin Time 23.5 sec (22.0-30.0); Prothrombin Time 10.1 sec (9.0-12.0)
[2022-01-24 09:00] LABS: ALT 79 U/L (4-49); AST 122 U/L (17-59); African American GFR (CKD) >90 (>60 ml/min/1.73 sqM); Alkaline Phosphatase 69 U/L (38-126); Anion Gap 11 mmol/L; Blood Urea Nitrogen 8 mg/dL (9-20); Calcium 8.4 mg/dL (8.4-10.2); Carbon Dioxide 22 mmol/L (22-30); Chloride 104 mmol/L (98-107); Glucose 133 mg/dL (74-99); Magnesium 2.2 mg/dL (1.6-2.3); Non-African American GFR(CKD) >90 (>60 ml/min/1.73 sqM); Potassium 4.1 mmol/L (3.5-5.1); Sodium 137 mmol/L (137-145); Total Bilirubin 0.4 mg/dL (0.2-1.3); Total Protein 6.9 g/dL (6.3-8.2)
[2022-01-24 09:01] LABS: Alcohol 161 mg/dL
[2022-01-24] MEDS ORDERED: NITROGLYCERIN SL TABS 0.4 MG TAB SUBLINGUAL PRN (10:31)
[2022-01-24] MEDS ORDERED: LORazepam 2 MG/ML INJ IV PRN ×3 (11:30)
[2022-01-24] MEDS ORDERED: NITROGLYCERIN OINT 1 INCH/GM PACKET TOPICAL SCH (12:00)
[2022-01-24] MEDS ORDERED: SODIUM CHLORIDE 0.9% 1,000 ML IV STA (13:45)
--- NOTE | 2022-01-24 14:18 | P.CRDCN ---
History of Present Illness History of present illness: HISTORY OF PRESENTING ILLNESS This is a pleasant 56-year-old no past medical history significant for alcohol abuse, marijuana use. 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 We have been asked to see in consultation for chest pain. Patient presents emergency department with episode of chest tightness, diaphoresis at work. He states he was lifting boxes at work, had chest tightness in the left side of his chest, which some radiation to the left arm. He also had tremors. He states the tem perature was very warm at work as well and he became diaphoretic and lightheaded. [place] as if he may pass out. He denies any shortness of breath, nausea, vomiting. He chest pain is nonexertional. No specific aggravating or alleviating factors. He denies any history of CAD, ID, stroke, diabetes, dys lipidemia. He denies a family history of coronary artery disease. He denies any tobacco use. He occasionally smokes marijuana. He currently drinks 1 pint of FireBall every other day. Last drank yesterday. DIAGNOSTICS EKG reveals sinus rhythm, heart rate 80, repolarization in lead II and V6, T wave inversion in lead aVL no acute ischemia noted. Prior EKG 06/2021 with similar findings. Telemetry tracings indicate sinus mechanism Chest xray no acute cardiopulmonary process Laboratory reviewed, troponin negative 2, d-dimer negative, CBC unremarkable, sodium 137, potassium 4.1, BUN 8, serum creatinine 0.79, AST 122, AST 79, serum alcohol 161 REVIEW OF SYSTEMS At the time of my exam: CONSTITUTIONAL: Denies fever or chills. +tremors CARDIOVASCULAR: Denies chest pain, shortness of breath, orthopnea, PND or palpitations. RESPIRATORY: Denies cough. GASTROINTESTINAL: Denies abdominal pain, diarrhea, constipation, nausea or vomiting. MUSCULOSKELETAL: Denies myalgias. NEUROLOGIC: Denies numbness, tingling, headacbe or weakness. ENDOCRINE: Denies fatigue, weight change, polydipsia or polyurina. GENITOURINARY: Denies burning, hematuria or urgency with micturation. HEMATOLOGIC: Denies history of anemia or bleeding. PHYSICAL EXAMINATION Blood pressure 138/92, heart rate 81, afebrile, saturation 97% on room air CONSTITUTIONAL: No apparent distress. HEENT: Head is normocephalic. Pupils are equal, round. Sclerae anicteric. Mucous membranes of the mouth are moist. No JVD. No carotid bruit. CHEST EXAMINATION: Lungs are clear to auscultation. No chest wall tenderness is noted on palpation or with deep breathing. HEART EXAMINATION: Regular rate and rhythm. S1, S2 heard. No murmurs, gallops or rub. ABDOMEN: Soft, nontender. Positive bowel sounds. EXTREMITIES: 2+ peripheral pulses, no lower extremity edema and no calf tenderness. NEUROLOGIC EXAMINATION: Patient is awake, alert and oriented x3. ASSESSMENT Alcohol withdrawal Chest pain, atypical, acute coronary syndrome ruled out no ischemia noted on EKG. Cardiac enzymes negative PLAN At this time, patient appears to be withdrawing from alcohol, do not recommend stress test at this time, this can be discussed as an outpatient IV fluids Decrease aspirin 81mg Discontinue nitropaste [facility] protocol for alcohol withdrawal Obtain repeat 2D echocardiogram and doppler study to assess cardiac structure and function. Rest of management per primary Nurse practitioner note has been reviewed by physician. Signing provider agrees with the documented findings, assessment, and plan of care. Past Medical History Past Medical History: No Reported History History of Any Multi-Drug Resistant Organisms: None Reported Past Surgical History: No Surgical Hx Reported Past Psychological History: No Psychological Hx Reported Smoking Status: Never smoker Past Alcohol Use History: Occasional Past Drug Use History: Marijuana Medications and Allergies Home Medications Medication Instructions Recorded Confirmed Type Ainsley Back & Body 1 - 2 tab PO QID PRN 01/24/22 01/24/22 History Ibuprofen [Advil] 200 - 400 mg PO QID PRN 01/24/22 01/24/22 History Allergies Allergy/AdvReac Type Severity Reaction Status Date / Time No Known Allergies Allergy Verified 01/24/22 08:53 Physical Exam Vitals: Vital Signs Temp Pulse Pulse Resp BP Pulse Ox 01/24/22 09:27 81 18 138/92 97 01/24/22 08:56 87 01/24/22 07:35 98.6 F 91 16 158/100 98 Intake and Output 01/23/22 01/24/22 01/24/22 22:59 06:59 14:59 Other: Weight 65.771 kg Results 01/24/22 08:30 01/24/22 08:30 Cardiac Enzymes 01/24/22 01/24/22 01/24/22 Range/Units 08:30 08:30 11:37 AST 122 H (17-59) U/L Troponin I <0.012 <0.012 (0.000-0.034) ng/mL Coagulation 01/24/22 Range/Units 08:30 PT 10.1 (9.0-12.0) sec APTT 23.5 (22.0-30.0) sec CBC 01/24/22 Range/Units 08:30 WBC 5.1 (3.8-10.6) k/uL RBC 4.20 L (4.30-5.90) m/uL Hgb 14.0 (13.0-17.5) gm/dL Hct 41.3 (39.0-53.0) % Plt Count 285 (150-450) k/uL Comprehensive Metabolic Panel 01/24/22 Range/Units 08:30 Sodium 137 (137-145) mmol/L Potassium 4.1 (3.5-5.1) mmol/L Chloride 104 (98-107) mmol/L Carbon Dioxide 22 (22-30) mmol/L BUN 8 L (9-20) mg/dL Creatinine 0.79 (0.66-1.25) mg/dL Glucose 133 H (74-99) mg/dL Calcium 8.4 (8.4-10.2) mg/dL AST 122 H (17-59) U/L ALT 79 H (4-49) U/L Alkaline Phosphatase 69 (38-126) U/L Total Protein 6.9 (6.3-8.2) g/dL Albumin 4.0 (3.5-5.0) g/dL Current Medications Generic Name Dose Route Start Last Admin Trade Name Freq PRN Reason Stop Dose Admin Aspirin 325 mg 01/25/22 09:00 Aspirin 325 Mg Tab PO DAILY KATE Lorazepam 1 mg 01/24/22 11:30 Lorazepam 2 Mg/Ml Inj IV Q2HR PRN CIWA 8 or 9 Lorazepam 1 mg 01/24/22 11:30 Lorazepam 2 Mg/Ml Inj IV Q1HR PRN CIWA 10 to 15 Lorazepam 2 mg 01/24/22 11:30 Lorazepam 2 Mg/Ml Inj IV 01/26/22 11:31 Q10M PRN CIWA 16 or higher Multivitamins 1 each 01/25/22 09:00 Multivitamins, Thera 1 Each Tab PO DAILY KATE Nitroglycerin 0.4 mg 01/24/22 10:31 Nitroglycerin Sl Tabs 0.4 Mg Tab SUBLINGUAL Q5M PRN Chest Pain Nitroglycerin 1 inch 01/24/22 12:00 01/24/22 12:12 Nitroglycerin Oint 1 Inch/Gm Packet TOPICAL 1 inch Q6HR KATE Administration Thiamine HCl 100 mg 01/24/22 17:30 Thiamine 100 Mg Tab PO BID-W/MEALS KATE Intake and Output 01/23/22 01/24/22 01/24/22 22:59 06:59 14:59 Other: Weight 65.771 kg Patient Weight 01/25/22 06:59 Weight 65.771 kg 01/24/22 08:30 01/24/22 08:30
--- NOTE | 2022-01-24 14:34 | P.HPIM ---
History of Present Illness Chief Complaint: Chest pain Patient is a 56-year-old male with a past medical history significant for alcohol dependence presents a hospital complaining of chest pain. This probably started 1 week ago and has been constant in nature. He also be is of some chest discomfort which is reproducible in the retrosternal area. Patient states that does not radiate to his left arm or to his jaw. She checks approximately fifth every few days however denies any use of other recreational drugs. Vital signs are stable, cbc and bmp reviewed. Cardiac troponins reviewed negative x2. He does seem slightly anxious. EKG reviewed. Cardiology consulted from the emergency department. Past Medical History Past Medical History: No Reported History History of Any Multi-Drug Resistant Organisms: None Reported Past Surgical History: No Surgical Hx Reported Past Psychological History: No Psychological Hx Reported Smoking Status: Never smoker Past Alcohol Use History: Occasional Past Drug Use History: Marijuana Medications and Allergies Home Medications Medication Instructions Recorded Confirmed Type Ainsley Back & Body 1 - 2 tab PO QID PRN 01/24/22 01/24/22 History Ibuprofen [Advil] 200 - 400 mg PO QID PRN 01/24/22 01/24/22 History Allergies Allergy/AdvReac Type Severity Reaction Status Date / Time No Known Allergies Allergy Verified 01/24/22 08:53 Physical Exam Vitals: Vital Signs Temp Pulse Pulse Resp BP Pulse Ox 01/24/22 09:27 81 18 138/92 97 01/24/22 08:56 87 01/24/22 07:35 98.6 F 91 16 158/100 98 Intake and Output 01/23/22 01/24/22 01/24/22 22:59 06:59 14:59 Other: Weight 65.771 kg Gen. patient is awake alert oriented slightly sightly anxious Cardio normal S1/S2 Respiratory no wheezing or rhonchi appreciated Abdomen soft, nontender Neuro cranial nerves II-12 grossly intact 5/5 strength Extremity no pitting edema Results CBC & Chem 7: 01/24/22 08:30 01/24/22 08:30 Labs: Abnormal Lab Results - Last 24 Hours (Table) 01/24/22 01/24/22 Range/Units 08:30 08:30 RBC 4.20 L (4.30-5.90) m/uL BUN 8 L (9-20) mg/dL Glucose 133 H (74-99) mg/dL AST 122 H (17-59) U/L ALT 79 H (4-49) U/L Assessment and Plan Assessment: Assessment: #1 chest pain rule out ACS versus muscular skeletal #2 alcohol withdrawal symptoms Plan: -Admit to medicine for close monitoring -Aspiration/fall precaution -Obtain 2-D echocardiogram -Cardiac troponin negative 2 -Cardio consulted -DVT prophylaxis heparin
[2022-01-24] MEDS: THIAMINE 100 MG TAB PO SCH (17:32)
[2022-01-24] MEDS: METOPROLOL TARTRATE 25 MG TAB PO SCH ×2 (17:32→20:05)
--- NOTE | 2022-01-25 07:27 | CA ---
Transthoracic Echo Report Name: Heriberto Badillo Age: 56 Gender: M : 1965 Exam Date: 01/24/2022 14:23 Exam Location: [facility] Ht (in): 67 Wt (lb): 145 Ordering Physician: Pham Edgar Attending/Referring Phys: Heat Treat Furnace Operator Tati Huynh, ANNMARIE Procedure CPT: Indications: LV function, chest pain, etoh Cardiac Hx: limited study Technical Quality: Good Contrast 1: Total Dose (mL): Contrast 2: Total Dose (mL): MEASUREMENTS (Male / Female) Normal Values FINDINGS Left Ventricle Limited study. Left ventricular ejection fraction is estimated at 60-65 %. Right Ventricle Right Atrium Left Atrium Anurysmal atrial septum. Bubbles study perform. No obvious shunt by bubble however poor angles and poor images. Consider KRISTY if shunt suspected. Mitral Valve Aortic Valve Tricuspid Valve Pulmonic Valve Pericardium Normal pericardium. Aorta CONCLUSIONS Left ventricular ejection fraction 60-65% Anurysmal atrial septum. Bubbles study perform. No obvious shunt by bubble however poor angles and poor images. Consider KRISTY if shunt suspected. Previewed by: Dr. Huy Marshall DO (Electronically Signed) Final Date: 25 January 2022 07:26
[2022-01-25 07:57] VITALS: RESP 18; TEMP 97.9
[2022-01-25] MEDS ORDERED: ASPIRIN 325 MG TAB PO SCH (09:00)
[2022-01-25] MEDS ORDERED: ENOXAPARIN 40 MG/0.4 ML SYRINGE SQ SCH (09:00)
[2022-01-25] MEDS ORDERED: MULTIVITAMINS, THERA 1 EACH TAB PO SCH (09:00)
[2022-01-25] MEDS ORDERED: ASPIRIN 81 MG PO SCH (09:00)
[2022-01-25] MEDS ORDERED: LOSARTAN 50 MG TAB PO SCH (09:00)
[2022-01-25 09:20] LABS: Chol/HDL Ratio 3.46 Ratio; LDL Cholesterol,Calculated 132.4 mg/dL (0.0-131.0)
[2022-01-25] MEDS: THIAMINE 100 MG TAB PO SCH (09:20)
--- NOTE | 2022-01-25 11:23 | P.PN ---
Subjective Progress Note Date: 01/25/22 HISTORY OF PRESENTING ILLNESS This is a pleasant 56-year-old no past medical history significant for alcohol abuse, marijuana use. He does not follow with a digital marketing intern. We have been asked to see in consultation for chest pain. Patient presents emergency department with episode of chest tightness, diaphoresis at work. He states he was lifting boxes at work, had chest tightness in the left side of his chest, which some radiation to the left arm. He also had tremors. He states the temperature was very warm at work as well and he became diaphoretic and lightheaded. [place] as if he may pass out. He denies any shortness of breath, nausea, vomiting. He chest pain is nonexertional. No specific aggravating or alleviating factors. He denies any history of CAD, DE, stroke, diabetes, dyslipidemia. He denies a family history of coronary artery disease. He denies any tobacco use. He occasionally smokes marijuana. He currently drinks 1 pint of FireBall every other day. Last drank yesterday. DIAGNOSTICS EKG reveals sinus rhythm, heart rate 80, repolarization in lead II and V6, T wave inversion in lead aVL no acute ischemia noted. Prior EKG 06/2021 with similar findings. Telemetry tracings indicate sinus mechanism Chest xray no acute cardiopulmonary process Laboratory reviewed, troponin negative 2, d-dimer negative, CBC unremarkable, sodium 137, potassium 4.1, BUN 8, serum creatinine 0.79, AST 122, AST 79, serum alcohol 161 01/25/2022 Patient examined this morning. Patient is sitting up in the chair eating breakfast. Patient denies any further episodes of chest pain or pressure. He denies shortness of breath. Blood pressure elevated this morning with a reading of 164/101. Echocardiogram completed revealing ejection fraction 60-65%. PHYSICAL EXAMINATION CONSTITUTIONAL: No apparent distress. HEENT: Head is normocephalic. Pupils are equal, round. Sclerae anicteric. Mucous membranes of the mouth are moist. No JVD. No carotid bruit. CHEST EXAMINATION: Lungs are clear to auscultation. No chest wall tenderness is noted on palpation or with deep breathing. HEART EXAMINATION: Regular rate and rhythm. S1, S2 heard. No murmurs, gallops or rub. ABDOMEN: Soft, nontender. Positive bowel sounds. EXTREMITIES: 2+ peripheral pulses, no lower extremity edema and no calf tenderness. NEUROLOGIC EXAMINATION: Patient is awake, alert and oriented x3. ASSESSMENT Alcohol withdrawal Chest pain, atypical, acute coronary syndrome ruled out no ischemia noted on EKG. Cardiac enzymes negative PLAN Continue current cardiac medications Discontinue metoprolol Begin losartan 50mg daily for optimal blood pressure control Outpatient stress testing No further inpatient recommendations from a cardiac standpoint We will sign off. Please reconsult if needed. Nurse practitioner note has been reviewed by physician. Signing provider agrees with the documented findings, assessment, and plan of care. Objective - Vital Signs Vital signs: Vital Signs Temp 97.9 F 01/25/22 07:12 Pulse 84 01/25/22 07:12 Resp 18 01/25/22 07:12 BP 164/101 01/25/22 07:12 Pulse Ox 99 01/25/22 07:12 FiO2 Intake & Output 01/24/22 01/25/22 01/25/22 18:59 06:59 18:59 Weight 65.771 kg Other: # Voids 2 - Labs CBC & Chem 7: 01/24/22 08:30 01/24/22 08:30 Labs: Abnormal Lab Results - Last 24 Hours (Table) 01/24/22 01/24/22 Range/Units 08:30 15:31 Hemoglobin A1c 6.3 H (0.0-6.0) % Triglycerides 205.00 H (0.00-149.00) mg/dL Cholesterol 244.00 H (0.00-200.00) mg/dL LDL Cholesterol, Calc 132.4 H (0.0-131.0) mg/dL VLDL Cholesterol, Calc 41.00 H (5.00-40.00) mg/dL HDL Cholesterol 70.60 H (40.00-60.00) mg/dL
[2022-01-25 11:48] VITALS: BP 178/100; PULSE 82
== END 2022-01-25 12:22 | disposition left against medical advice (07) ==
LOC: EC 07:28 → 6NMEDSUR 10:31 → 5NMEDONC 12:02 → 3SCARD 12:19 → 6NMEDSUR 18:08
PROVIDERS: ADMIT Internal Medicine; ATTEND Internal Medicine
DX: R07.89 Other chest pain (principal); F10.239 Alcohol dependence with withdrawal, unspecified; R06.00 Dyspnea, unspecified; R03.0 Elevated blood-pressure reading, without diagnosis of hypertension; Z53.29 Procedure and treatment not carried out because of patient's decision for other reasons
CPT/HCPCS: 96372; 99285; 36415; 93005; 93308; 85379; 80061; 80053; 84443; 83735; 84484; 85025; 85610; 85730; 83036; 71046; G0378 ×3; G0480; J1650; 80320

== ENCOUNTER 2022-07-13 07:55 | Day surgery (SDC) | payer OTHER ==
[2022-07-11 15:50] VITALS: BMI 22.4
[~2022-07-13 07:55] MED LIST: LACTATED RINGERS 1,000 ML IV SCH
[2022-07-13 08:23] VITALS: RESP 15; TEMP 97
[2022-07-13] MEDS ORDERED: PROPOFOL 10 MG/ML 20 ML VIAL IV ONE (09:07)
--- NOTE | 2022-07-13 09:48 | P.PCN ---
Date of Procedure: 07/13/22 Procedure(s) Performed: BRIEF HISTORY: Patient is a 57-year-old pleasant white male scheduled for an elective colonoscopy as a part of anemia and positive cologuard PROCEDURE PERFORMED: Colonoscopy with snare polypectomy. PREOPERATIVE DIAGNOSIS: Anemia and positive cologuard. IV sedation per Anesthesia. PROCEDURE: After informed consent was obtained, the patient, was brought into the endoscopy unit. IV sedation was administered by Anesthesia under continuous monitoring. Digital rectal examination was normal. Initially the Olympus CF-160 flexible video colonoscope was then inserted in the rectum, gradually advanced into the cecum without any difficulty. Careful examination was performed as the scope was gradually being withdrawn. Ileocecal valve and the appendiceal orifice were visualized and appeared normal. Prep was excellent. Mucosa of the cecum, ascending colon, transverse colon, descending colon, sigmoid colon, and rectum appeared normal. In the proximal rectum there was a 5 mm polyp that was removed by snare polypectomy. Retroflexion was performed in the rectum and no lesions were seen. The patient tolerated the procedure well. IMPRESSION: 5 mm proximal rectal polyp status post polypectomy Rest of the colon appeared normal RECOMMENDATIONS: Findings of this examination were discussed with the patient as well as his family. He was advised to follow with the biopsy results. If the biopsy reveals adenoma he can have a repeat colonoscopy in 5 years..
[2022-07-13 09:50] VITALS: BP 152/88; PULSE 69
== END 2022-07-13 10:07 | disposition home or self-care (01) ==
LOC: ORWHC2ENDO 07:55
PROVIDERS: ATTEND Internal Medicine Gastroenterology
DX: K62.1 Rectal polyp (principal); D64.9 Anemia, unspecified; R19.5 Other fecal abnormalities; F12.90 Cannabis use, unspecified, uncomplicated
CPT/HCPCS: 45385; J2704; 88305

== ENCOUNTER 2023-08-22 06:08 | Day surgery (SDC) | payer OTHER ==
[2023-08-22] MEDS ORDERED: LACTATED RINGERS 1,000 ML IV SCH (07:07)
[2023-08-22] MEDS ORDERED: LACTATED RINGERS 1,000 ML IV ONE (07:07)
[2023-08-22] MEDS ORDERED: LIDOCAINE 1% (10MG/ML) FOR IV START INTRADERMA PRN (07:07)
--- NOTE | 2023-08-22 07:20 | P.GSHP ---
History of Present Illness H&P Date: 08/22/23 CHIEF COMPLAINT: Colon screen HISTORY OF PRESENT ILLNESS: The patient is a 58-year-old male who presents for colon screen. Lower endoscopy was offered for further evaluation and management. PAST MEDICAL HISTORY: Please see list. PAST SURGICAL HISTORY: Please see list. MEDICATIONS: Please see list. ALLERGIES: Please see list. SOCIAL HISTORY: No illicit drug use FAMILY HISTORY: No reports of Crohn disease or ulcerative colitis. REVIEW OF ORGAN SYSTEMS: CONSTITUTIONAL: No reports of fevers or chills. PHYSICAL EXAM: VITAL SIGNS: Stable GENERAL: Well-developed pleasant in no acute distress. HEENT: No scleral icterus. Extraocular movements grossly intact. Moist buccal mucosa. NECK: Supple without lymphadenopathy. CHEST: Unlabored respirations. Equal bilateral excursions. CARDIOVASCULAR: Regular rate and rhythm. Distal 2+ pulses. ABDOMEN: Soft, nontender, nondistended. MUSCULOSKELETAL: No clubbing, cyanosis, or edema. ASSESSMENT: 1. Colon screen. PLAN: 1. Recommend proceeding with a lower endoscopy Past Medical History Past Medical History: Hypertension Additional Past Medical History / Comment(s): "sometimes I get out of breath but I don't think it's a problem, just getting old I guess", not currently on antihypertensives History of Any Multi-Drug Resistant Organisms: None Reported Past Surgical History: No Surgical Hx Reported Additional Past Surgical History / Comment(s): colonoscopy 2021 Past Anesthesia/Blood Transfusion Reactions: No Reported Reaction Smoking Status: Former smoker - Past Family History Mother Family Medical History: No Reported History Medications and Allergies Home Medications Medication Instructions Recorded Confirmed Type Albuterol Inhaler [Ventolin Hfa 2 inh INHALATION TID PRN 08/20/23 08/22/23 History Inhaler] Aspirin [Adult Low Dose Aspirin EC] 81 mg PO DAILY PRN 08/20/23 08/20/23 History Xrthjbp-Znab-Fqxn [id number] 2 each PO Q6HR PRN 08/20/23 08/20/23 History [Excedrin] Allergies Allergy/AdvReac Type Severity Reaction Status Date / Time No Known Allergies Allergy Verified 08/22/23 07:16
[2023-08-22 07:41] VITALS: TEMP 96.9
[2023-08-22] MEDS ORDERED: fentaNYL (PF) 50 MCG/ML 2 ML AMP ONE (07:51)
[2023-08-22] MEDS ORDERED: PROPOFOL 10 MG/ML 20 ML VIAL IV ONE (07:51)
[2023-08-22 08:33] VITALS: RESP 16
--- NOTE | 2023-08-22 08:39 | P.PCN ---
Date of Procedure: 08/22/23 Description of Procedure: PREOPERATIVE DIAGNOSIS: Abnormal stool test, Cologuard Colonoscopy screening POSTOPERATIVE DIAGNOSIS: Tubular adenoma ascending colon Tubular adenoma transverse colon Internal hemorrhoids, grade 2 OPERATION: Colonoscopy to the ileocecal valve and appendiceal orifice, cecum Colonoscopy with cold forceps biopsy SURGEON: Viry Wilosn MD. ANESTHESIA: MAC. INDICATIONS: The patient is an 58-year-old male who presents within normal stool test. Benefits and risks were described and informed consent was obtained. DESCRIPTION OF PROCEDURE: The patient had undergone Sutab prep. The patient had been brought into the operating room and laid in the left lateral decubitus position. After adequate intravenous sedation, the rectum was examined with 2% lidocaine jelly. The prostate was unremarkable. External hemorrhoids were encountered. The rectal tone was within normal limits. No lesions were palpated in the rectal vault. An Olympus colonoscope was advanced until the cecum, ileocecal valve and appendiceal orifice were clearly viewed. The prep was good. No sigmoid diverticulosis was encountered. Colonic polyps were found and removed. No evidence of focal colitis was found. Retroflexion of the scope demonstrated grade 2 internal hemorrhoids without active bleeding or inflammation. The colon was desufflated. The patient had tolerated the procedure well. Withdrawal time was over 6 minutes. FINDINGS: Aronchick preparation quality scale 1+ (1-5) Internal hemorrhoids, grade 2 External hemorrhoids, grade 2. No arteriovenous malformations. No large sigmoid diverticulosis Removal of 2 polyps: - Cold forceps biopsy at ascending colon, 4 mm adenoma - Cold forceps biopsy at transverse colon, 5 mm adenoma No focal colitis. RECOMMENDATIONS: Recommend repeat colonoscopy 3 years, 2025 Plan - Discharge Summary Discharge Rx Participant: Yes New Discharge Prescriptions: Continue Cpfhfva-Xkku-Hekt [id number] [Excedrin] 2 each PO Q6HR PRN PRN Reason: Headache Aspirin [Adult Low Dose Aspirin EC] 81 mg PO DAILY PRN PRN Reason: Headache Albuterol Inhaler [Ventolin Hfa Inhaler] 2 inh INHALATION TID PRN PRN Reason: Shortness Of Breath Discharge Medication List Albuterol Inhaler [Ventolin Hfa Inhaler] 2 inh INHALATION TID PRN 08/20/23 [History] Aspirin [Adult Low Dose Aspirin EC] 81 mg PO DAILY PRN 08/20/23 [History] Ckerlya-Dxoo-Qqvb [id number] [Excedrin] 2 each PO Q6HR PRN 08/20/23 [History] Follow up Appointment(s)/Referral(s): Viry Wilson MD [STAFF PHYSICIAN] - 1 Week Patient Instructions/Handouts: *Surgery [facility] - (Anesthesia) Discharge Instructions Outpatient Surgery, Colonoscopy (DC), Colorectal Polyps (GEN) Activity/Diet/Wound Care/Special Instructions: Repeat colonoscopy in 3 years, 2025 Discharge Disposition: HOME SELF-CARE
[2023-08-22 08:58] VITALS: BP 176/94; PULSE 76
== END 2023-08-22 09:18 | disposition home or self-care (01) ==
LOC: ORWHC2ENDO 06:08
PROVIDERS: ATTEND Surgery Plastic and Reconstructive Surgery
DX: D12.2 Benign neoplasm of ascending colon (principal); K64.1 Second degree hemorrhoids; I10 Essential (primary) hypertension; Z87.891 Personal history of nicotine dependence; Z79.51 Long term (current) use of inhaled steroids; Z79.82 Long term (current) use of aspirin
CPT/HCPCS: 88305; 45380; J3010; J2704

== ENCOUNTER 2023-10-03 10:30 | Emergency (ER) | payer OTHER ==
[2023-10-03 11:01] VITALS: TEMP 98
[2023-10-03 11:10] LABS: Basophils # (A) 0.1 k/uL (0-0.2); Basophils % (A) 1 %; Eosinophils # (A) 0.3 k/uL (0-0.7); Eosinophils % (A) 6 %; HGB 12.9 gm/dL (13.0-17.5); Lymphocytes # (A) 2.1 k/uL (1.0-4.8); Lymphocytes % (A) 44 %; MCH 34.2 pg (25.0-35.0); MCV 100.5 fL (80.0-100.0); Macrocytosis Slight; Mean Platelet Volume 8.1; Monocytes # (A) 0.3 k/uL (0-1.0); Monocytes % (A) 6 %; Neutrophils % (A) 41 %; Platelet Count 239 k/uL (150-450); RBC 3.78 m/uL (4.30-5.90); RDW 14.2 % (11.5-15.5); WBC 4.9 k/uL (3.8-10.6)
[2023-10-03 11:25] LABS: ALT 64 U/L (4-49); AST 114 U/L (17-59); African American GFR (CKD) >90 (>60 ml/min/1.73 sqM); Albumin 3.8 g/dL (3.5-5.0); Alkaline Phosphatase 91 U/L (38-126); Anion Gap 6 mmol/L; Blood Urea Nitrogen 16 mg/dL (9-20); Calcium 8.5 mg/dL (8.4-10.2); Carbon Dioxide 25 mmol/L (22-30); Chloride 107 mmol/L (98-107); Glucose 105 mg/dL (74-99); Non-African American GFR(CKD) >90 (>60 ml/min/1.73 sqM); Potassium 4.5 mmol/L (3.5-5.1); Sodium 138 mmol/L (137-145); Total Bilirubin 0.5 mg/dL (0.2-1.3); Total Protein 6.6 g/dL (6.3-8.2)
--- NOTE | 2023-10-03 11:28 | XR ---
EXAMINATION TYPE: XR chest 2V DATE OF EXAM: 10/03/2023 11:20 AM CLINICAL INDICATION:Male, 58 years old with history of Chest Pain; [facility] COMPARISON: Chest radiographs from 01/24/2022. TECHNIQUE: XR chest 2V Frontal and lateral views of the chest. FINDINGS: Lungs/Pleura: There is no evidence of pleural effusion, focal consolidation, or pneumothorax. Pulmonary vascularity: Unremarkable. Heart/mediastinum: Cardiomediastinal silhouette is unremarkable. Musculoskeletal: No acute osseous pathology. Other findings: None IMPRESSION: No acute cardiopulmonary disease/process.
[2023-10-03 11:38] LABS: Partial Thromboplastin Time 24.5 sec (22.0-30.0); Prothrombin Time 10.9 sec (10.0-12.5)
--- NOTE | 2023-10-03 12:02 | ED ---
Chest Pain HPI - General Chief Complaint: Chest Pain Stated Complaint: Chest pain Time Seen by Provider: 10/03/23 10:51 Source: patient, RN notes reviewed Mode of arrival: ambulatory Limitations: no limitations - History of Present Illness Initial Comments: 58-year-old male presents emergency department chief complaint of chest pain and abdominal for last couple weeks. Patient was seen by PCP today and sent here for laboratory studies, further evaluation. He states he has had no prior cardiac disease he states he has a history of high blood pressure but not on any medication. Denies any shortness of breath denies fever chills cough or cold- like symptoms denies being a smoker. Patient denies any leg pain leg swelling no abdominal complaints no other associated symptoms. - Related Data Home Medications Medication Instructions Recorded Confirmed Albuterol Inhaler [Ventolin Hfa 2 inh INHALATION TID PRN 08/20/23 08/22/23 Inhaler] Aspirin [Adult Low Dose Aspirin EC] 81 mg PO DAILY PRN 08/20/23 08/20/23 Riqbzic-Zpgh-Klbi [id number] 2 each PO Q6HR PRN 08/20/23 08/20/23 [Excedrin] Allergies Allergy/AdvReac Type Severity Reaction Status Date / Time No Known Allergies Allergy Verified 10/03/23 10:38 Review of Systems ROS Statement: Those systems with pertinent positive or pertinent negative responses have been documented in the HPI. ROS Other: All systems not noted in ROS Statement are negative. EKG Findings - EKG Comments: EKG Findings:: EKG performed at 10: 42 sinus rhythm rate of 80 NE 172 QRS 85 QT/QTc 348/384 - EKG Results: EKG: interpreted by HITESH Past Medical History Past Medical History: Hypertension Additional Past Medical History / Comment(s): "sometimes I get out of breath but I don't think it's a problem, just getting old I guess", not currently on antihypertensives History of Any Multi-Drug Resistant Organisms: None Reported Past Surgical History: No Surgical Hx Reported Additional Past Surgical History / Comment(s): colonoscopy 2021 Past Anesthesia/Blood Transfusion Reactions: No Reported Reaction Past Psychological History: No Psychological Hx Reported Smoking Status: Former smoker Past Alcohol Use History: Daily Past Drug Use History: Marijuana - Past Family History Mother Family Medical History: No Reported History General Exam Limitations: no limitations General appearance: alert, in no apparent distress Head exam: Present: atraumatic, normocephalic, normal inspection Eye exam: Present: normal appearance, PERRL, EOMI. Absent: scleral icterus, conjunctival injection, periorbital swelling ENT exam: Present: normal exam, mucous membranes moist Neck exam: Present: normal inspection. Absent: tenderness, meningismus, lymphadenopathy Respiratory exam: Present: normal lung sounds bilaterally. Absent: respiratory distress, wheezes, rales, rhonchi, stridor Cardiovascular Exam: Present: regular rate, normal rhythm, normal heart sounds. Absent: systolic murmur, diastolic murmur, rubs, gallop, clicks GI/Abdominal exam: Present: soft, normal bowel sounds. Absent: distended, tenderness, guarding, rebound, rigid Course Vital Signs 10/03/23 10/03/23 10/03/23 10:33 12:34 12:37 Temperature 98.0 F Pulse Rate 108 H 98 79 Respiratory 18 20 16 Rate Blood Pressure 141/80 126/98 126/79 O2 Sat by Pulse 97 98 98 Oximetry Chest Pain MDM - MDM Was pt. sent in by a medical professional or institution (, PA, EMPLOYEE OPERATIONS EXAMINER, urgent care, hospital, or [facility]...) When possible be specific @ -PCP Did you speak to anyone other than the patient for history (EMS, parent, family, police, friend...)? What history was obtained from this source @ -No Did you review nursing and triage notes (agree or disagree)? Why? @ -I reviewed and agree with nursing and triage notes Were old charts reviewed (outside hosp., previous admission, EMS record, old EKG, old radiological studies, urgent care reports/EKG's, [facility] records)? Report findings @ -No old charts were reviewed Differential Diagnosis (chest pain, altered mental status, abdominal pain women, abdominal pain men, vaginal bleeding, weakness, fever, dyspnea, syncope, headache, dizziness, GI bleed, back pain, seizure, CVA, palpatations, mental health, musculoskeletal)? @ -[Differential Chest Pain: Stable Angina, Unstable Angina, STEMI, NSTEMI Aortic Dissection, Pneumothorax, Musculoskeletal, Esophageal Spasm GERD, Cholecystitis, Pancreatitis, Zoster, this is not meant to be an all-inclusive list. EKG interpreted by me (3pts min.). @ -As above X-rays interpreted by me (1pt min.). @ -Chest x-ray shows no acute cardiopulmonary process CT interpreted by me (1pt min.). @ -None done U/S interpreted by me (1pt. min.). @ -None done What testing was considered but not performed or refused? (CT, X-rays, U/S, labs)? Why? @ -None What meds were considered but not given or refused? Why? @ -None Did you discuss the management of the patient with other professionals (professionals i.e. , PA, EMPLOYEE OPERATIONS EXAMINER, lab, RT, psych nurse, social media sr strategy manager, bottle machine operator, teacher, chief credit officer, nurse case management)? Give summary @ -I did angelica the case with Dr. Stark recommends that the patient may follow- up with cardiology outpatient that he does not need to be admitted at this time. Was smoking cessation discussed for >3mins.? @ -No Was critical care preformed (if so, how long)? @ -No Were there social determinants of health that impacted care today? How? (Homelessness, low income, unemployed, alcoholism, drug addiction, tr ansportation, low edu. Level, literacy, decrease access to med. care, fpc, rehab)? @ -No Was there de-escalation of care discussed even if they declined (Discuss DNR or withdrawal of care, Hospice)? DNR status @ -No What co-morbidities impacted this encounter? (DM, HTN, Smoking, COPD, CAD, Cancer, CVA, ARF, Chemo, Hep., AIDS, mental health diagnosis, sleep apnea, morbid obesity)? @ -None Was patient admitted / discharged? Hospital course, mention meds given and route, prescriptions, significant lab abnormalities, going to OR and other pertinent info. @ -[Discharge patient has had on and off chest pain for last 2 weeks. Initial workup was negative. PCP is updated and recommended follow-up with outpatient cardiology return brands were discussed. Undiagnosed new problem with uncertain prognosis? @ -No Drug Therapy requiring intensive monitoring for toxicity (Heparin, Nitro, Insulin, Cardizem)? @ -No Were any procedures done? @ -No Diagnosis/symptom? @ -[Atypical chest pain Acute, or Chronic, or Acute on Chronic? @ -Acute Uncomplicated (without systemic symptoms) or Complicated (systemic symptoms)? @ complicated Side effects of treatment? @ -[No Exacerbation, Progression, or Severe Exacerbation? @ -No Poses a threat to life or bodily function? How? (Chest pain, [place], [place], pneumonia, PE, COPD, DKA, ARF, appy, cholecystitis, CVA, Diverticulitis, Homicidal, Suicidal, threat to staff... and all critical care pts) @ -[Yes low likelihood, chest pain Disposition Clinical Impression: Atypical chest pain Disposition: HOME SELF-CARE Condition: Stable Instructions (If sedation given, give patient instructions): Chest Pain (ED) Additional Instructions: Please return to the Emergency Department if symptoms worsen or any other concerns. Is patient prescribed a controlled substance at d/c from ED?: No Referrals: Mulugeta Pinto MD [Primary Care Provider] - 1-2 days Time of Disposition: 12:02
[2023-10-03 13:03] VITALS: BP 126/79; PULSE 79; RESP 16
== END 2023-10-03 12:38 | disposition home or self-care (01) ==
LOC: EC 10:30
DX: R07.89 Other chest pain (principal); I10 Essential (primary) hypertension; F12.90 Cannabis use, unspecified, uncomplicated; Z87.891 Personal history of nicotine dependence; Z79.82 Long term (current) use of aspirin
CPT/HCPCS: 36415; 71046; 80053; 83735; 84484; 85025; 85610; 85730; 93005; 99285

== ENCOUNTER → 2023-10-22 | Outpatient (CLI) | payer OTHER ==
[2023-10-22 15:33] LABS: Basophils # (A) 0.08 X 10*3/uL (0.00-0.10); Basophils % (A) 1.8 %; Eosinophils # (A) 0.18 X 10*3/uL (0.04-0.35); HCT 39.4 % (39.6-50.0); HGB 13.1 g/dL (13.0-17.0); Lymphocytes # (A) 2.26 X 10*3/uL (0.90-5.00); Lymphocytes % (A) 49.8 %; MCH 34.1 pg (27.0-32.0); MCHC 33.2 g/dL (32.0-37.0); MCV 102.6 FL (80.0-97.0); Mean Platelet Volume 10.5 FL (9.5-12.2); Monocytes # (A) 0.38 X 10*3/uL (0.20-1.00); Monocytes % (A) 8.4 %; NRBC Per 100 WBC 0 X 10*3/uL (0.00-0.01); Neutrophils # (A) 1.63 X 10*3/uL (1.80-7.70); Neutrophils % (A) 35.8 %; Platelet Count 203 X 10*3/uL (140-440); RBC 3.84 X 10*6/uL (4.40-5.60); RDW 13.5 % (11.5-14.5); WBC 4.54 X 10*3/uL (4.50-10.00)
[2023-10-22 16:08] LABS: BUN/Creat Ratio 9.78 Ratio (12.00-20.00); Blood Urea Nitrogen 8.8 mg/dL (9.0-27.0); Calcium 9.1 mg/dL (8.7-10.3); Carbon Dioxide 24.7 mmol/L (21.6-31.8); Chloride 102 mmol/L (96-109); Glucose 114 mg/dL (70-110); Iron 154 UG/DL (65-175); Potassium 4.3 mmol/L (3.5-5.5); Sodium 137 mmol/L (135-145); Total Iron Binding Capacity 281 UG/DL (228-460)
[2023-10-22 17:42] LABS: Erythrocyte Sedimentation Rate <1 mm/Hr (0-20)
== END | disposition home or self-care (01) ==
LOC: LABWHC1 10:22
PROVIDERS: ATTEND Internal Medicine
DX: Z00.00 Encounter for general adult medical examination without abnormal findings (principal); D64.9 Anemia, unspecified; J44.9 Chronic obstructive pulmonary disease, unspecified; R07.89 Other chest pain; R06.02 Shortness of breath
CPT/HCPCS: 36415; 80048; 82728; 83540; 83550; 85025; 85652

== ENCOUNTER 2025-02-25 11:48 | Emergency (ER) | payer OTHER ==
--- NOTE | 2025-02-25 12:27 | ED ---
General Adult HPI - General Chief complaint: Recheck/Abnormal Lab/Rx Stated complaint: possible ETOH Time Seen by Provider: 02/25/25 12:10 Source: patient, RN notes reviewed, old records reviewed Mode of arrival: ambulatory Limitations: no limitations - History of Present Illness Initial comments: 60-year-old male presents with skin discoloration, jaundice. Patient also reports abdominal distention. No abdominal pain. No fever. Patient is a daily drinker he drinks approximately a pint of whiskey daily. Patient does not follow regularly with a physician. No vomiting. Patient reports brown stool. - Related Data Home Medications Medication Instructions Recorded Confirmed Albuterol Inhaler [Ventolin Hfa 2 inh INHALATION TID PRN 08/20/23 08/22/23 Inhaler] Aspirin [Adult Low Dose Aspirin EC] 81 mg PO DAILY PRN 08/20/23 08/20/23 [id number] 2 each PO Q6HR PRN 08/20/23 08/20/23 [Excedrin] Allergies Allergy/AdvReac Type Severity Reaction Status Date / Time No Known Allergies Allergy Verified 02/25/25 11:53 Review of Systems ROS Statement: Those systems with pertinent positive or pertinent negative responses have been documented in the HPI. ROS Other: All systems not noted in ROS Statement are negative. Past Medical History Past Medical History: Hypertension Additional Past Medical History / Comment(s): "sometimes I get out of breath but I don't think it's a problem, just getting old I guess", not currently on antihypertensives History of Any Multi-Drug Resistant Organisms: None Reported Past Surgical History: No Surgical Hx Reported Additional Past Surgical History / Comment(s): colonoscopy 2021 Past Anesthesia/Blood Transfusion Reactions: No Reported Reaction Past Psychological History: No Psychological Hx Reported Smoking Status: Former smoker Past Alcohol Use History: Abuse, Daily Past Drug Use History: Marijuana - Past Family History Mother Family Medical History: No Reported History General Exam Limitations: no limitations General appearance: alert Eye exam: Present: scleral icterus Neck exam: Present: normal inspection. Absent: tenderness Respiratory exam: Present: normal lung sounds bilaterally. Absent: respiratory distress, wheezes Cardiovascular Exam: Present: regular rate, normal rhythm GI/Abdominal exam: Present: distended. Absent: tenderness Extremities exam: Present: normal inspection Neurological exam: Present: alert, oriented X3, CN II-XII intact. Absent: motor sensory deficit Skin exam: Present: other (Jaundice) Course Vital Signs 02/25/25 02/25/25 02/25/25 11:50 13:00 14:32 Temperature 98 F Pulse Rate 120 H 103 H 102 H Respiratory 20 16 16 Rate Blood Pressure 123/75 125/80 128/73 O2 Sat by Pulse 98 98 98 Oximetry 02/25/25 17:15 Temperature Pulse Rate 101 H Respiratory 16 Rate Blood Pressure 107/62 O2 Sat by Pulse 95 Oximetry Medical Decision Making - Medical Decision Making Was pt. sent in by a medical professional or institution (, ISA, ACCOUNT DEVELOPMENT REPRESENTATIVE, urgent care, hospital, or fpc...) When possible be specific @ -No Did you speak to anyone other than the patient for history (EMS, parent, family, police, friend...)? What history was obtained from this source @ -No Did you review nursing and triage notes (agree or disagree)? Why? @ -I reviewed and agree with nursing and triage notes Were old charts reviewed (outside hosp., previous admission, EMS record, old EKG , old radiological studies, urgent care reports/EKG's, fpc records)? Report findings @ -No old charts were reviewed Differential Abdominal Pain Men: Appendicitis, cholecystitis, diverticulosis, ischemic bowel, pancreatitis, hepatitis, UTI, gastroenteritis, AAA, incarcerated hernia, bowel obstruction, constipation, inflammatory bowel, hepatitis, peptic ulcer disease, splenic infarction, perforated viscus, testicular torsion, this is not meant to be an all-inclusive list EKG interpreted by me (3pts min.). @ -As above X-rays interpreted by me (1pt min.). @ -None done CT interpreted by me (1pt min.). @ -None done U/S interpreted by me (1pt. min.). @Ultrasound showing hepatic steatosis, hepatomegaly, normal, bile duct. What testing was considered but not performed or refused? (CT, X-rays, U/S, labs)? Why? @ -None What meds were considered but not given or refused? Why? @ -None Did you discuss the management of the patient with other professionals (professionals i.e. ISA Smith, ACCOUNT DEVELOPMENT REPRESENTATIVE, lab, RT, psych nurse, social service coordinator, setter cold rolling machine, teacher, chief creative officer, protective services case worker)? Give summary @Case discussed with the transfer team at [facility], Dr. Mccormick will accept patient for transfer. Case discussed with Dr. Becerra who will see the patient in consultation while he remains in the emergency department. Was smoking cessation discussed for >3mins.? @ -No Was critical care preformed (if so, how long)? @ -No Were there social determinants of health that impacted care today? How? (Homelessness, low income, unemployed, alcoholism, drug addiction, transportation, low edu. Level, literacy, decrease access to med. care, fdc, rehab)? @ -No Was there de-escalation of care discussed even if they declined (Discuss DNR or withdrawal of care, Hospice)? DNR status @ -No What co-morbidities impacted this encounter? (DM, HTN, Smoking, COPD, CAD, Cancer, CVA, ARF, Chemo, Hep., AIDS, mental health diagnosis, sleep apnea, morbid obesity)? @ -Daily drinker Was patient admitted / discharged? Hospital course, mention meds given and route, prescriptions, significant lab abnormalities, going to OR and other pertinent info. @60-year-old male presenting with jaundice, abdominal distention. No abdominal pain. Patient afebrile, tachycardic with otherwise stable vitals. Patient is jaundice. His laboratory testing reveals a leukocytosis at 12, she he is anemic. Patient has an elevated total bili at 15. He has a lactic of 7.1 which is downtrending in the emergency department to 4.6 after hydration. His INR is 1.5. His albumin is 3. Patient is in liver failure. He will be transferred for evaluation by gastroenterology and hepatology. Transfer to [facility]. Undiagnosed new problem with uncertain prognosis? @ -No Drug Therapy requiring intensive monitoring for toxicity (Heparin, Nitro, Insulin, Cardizem)? @ -No Were any procedures done? @ -No Diagnosis/symptom? @ -[Hyperbilirubinemia, liver failure Acute, or Chronic, or Acute on Chronic? @ -Acute Uncomplicated (without systemic symptoms) or Complicated (systemic symptoms)? @ -Default Side effects of treatment? @ -No Exacerbation, Progression, or Severe Exacerbation? @ -No Poses a threat to life or bodily function? How? (Chest pain, [place], [place], pneumonia, PE, COPD, DKA, ARF, appy, cholecystitis, CVA, Diverticulitis, Homicidal, Suicidal, threat to staff... and all critical care pts) @ -[Yes, liver failure - Lab Data Result diagrams: 02/25/25 12:30 02/25/25 12:30 Lab Results 02/25/25 02/25/25 02/25/25 Range/Units 12:30 12:30 12:30 WBC 12.27 H (4.50-10.00) 10*3/uL RBC 3.20 L (4.40-5.60) 10*6/uL Hgb 11.8 L (13.0-17.0) g/dL Hct 33.1 L (39.6-50.0) % MCV 103.4 H (80.0-97.0) fL MCH 36.9 H (27.0-32.0) pg MCHC 35.6 (32.0-37.0) g/dL Plt Count 160 (140-440) 10*3/uL MPV 11.0 (9.5-12.2) fL Immature Gran % (Auto) 0.7 % Neutrophils % 78.0 % Lymphocytes % 10.8 % Monocytes % 9.9 % Eosinophils % 0.2 % Basophils % 0.4 % Immature Gran # 0.08 H (0.00-0.04) 10*3/uL Neutrophils # 9.58 H (1.80-7.70) 10*3/uL Lymphocytes # 1.33 (0.90-5.00) 10*3/uL Monocytes # 1.21 H (0.20-1.00) 10*3/uL Eosinophils # 0.02 L (0.04-0.35) 10*3/uL Basophils # 0.05 (0.00-0.10) 10*3/uL PT 16.0 H (10.0-12.5) sec INR 1.5 H (<1.2) APTT 27.3 (22.0-30.0) sec Sodium 130 L (137-145) mmol/L Potassium 3.7 (3.5-5.1) mmol/L Chloride 96 L (98-107) mmol/L Carbon Dioxide 16 L (22-30) mmol/L Anion Gap 18 mmol/L BUN 23 H (9-20) mg/dL Creatinine 1.25 (0.66-1.25) mg/dL Est GFR (CKD-EPI)AfAm 72 (>60 ml/min/1.73 sqM) Est GFR (CKD-EPI)NonAf 63 (>60 ml/min/1.73 sqM) Glucose 147 H (74-99) mg/dL Lactic Ac Sepsis Rflx Plasma Lactic Acid Fly (0.7-2.0) mmol/L Calcium 8.6 (8.4-10.2) mg/dL Total Bilirubin 15.6 H* (0.2-1.3) mg/dL Conjugated Bilirubin 7.0 H (0.0-0.3) mg/dL Unconjugated Bilirubin 3.1 H (0.0-1.1) mg/dL Delta Bilirubin 5.5 H (0.0-0.2) mg/dL AST 451 H (17-59) U/L ALT 95 H (4-49) U/L Alkaline Phosphatase 207 H (38-126) U/L Ammonia (<30) umol/L Total Protein 8.1 (6.3-8.2) g/dL Albumin 3.3 L (3.5-5.0) g/dL Amylase 54 (30-110) U/L Lipase 245 (23-300) U/L Acetaminophen <10.0 ug/mL 02/25/25 02/25/25 02/25/25 Range/Units 12:30 13:09 15:17 WBC (4.50-10.00) 10*3/uL RBC (4.40-5.60) 10*6/uL Hgb (13.0-17.0) g/dL Hct (39.6-50.0) % MCV (80.0-97.0) fL MCH (27.0-32.0) pg MCHC (32.0-37.0) g/dL Plt Count (140-440) 10*3/uL MPV (9.5-12.2) fL Immature Gran % (Auto) % Neutrophils % % Lymphocytes % % Monocytes % % Eosinophils % % Basophils % % Immature Gran # (0.00-0.04) 10*3/uL Neutrophils # (1.80-7.70) 10*3/uL Lymphocytes # (0.90-5.00) 10*3/uL Monocytes # (0.20-1.00) 10*3/uL Eosinophils # (0.04-0.35) 10*3/uL Basophils # (0.00-0.10) 10*3/uL PT (10.0-12.5) sec INR (<1.2) APTT (22.0-30.0) sec Sodium (137-145) mmol/L Potassium (3.5-5.1) mmol/L Chloride (98-107) mmol/L Carbon Dioxide (22-30) mmol/L Anion Gap mmol/L BUN (9-20) mg/dL Creatinine (0.66-1.25) mg/dL Est GFR (CKD-EPI)AfAm (>60 ml/min/1.73 sqM) Est GFR (CKD-EPI)NonAf (>60 ml/min/1.73 sqM) Glucose (74-99) mg/dL Lactic Ac Sepsis Rflx Y Plasma Lactic Acid Fly 7.1 H* 4.6 H* (0.7-2.0) mmol/L Calcium (8.4-10.2) mg/dL Total Bilirubin (0.2-1.3) mg/dL Conjugated Bilirubin (0.0-0.3) mg/dL Unconjugated Bilirubin (0.0-1.1) mg/dL Delta Bilirubin (0.0-0.2) mg/dL AST (17-59) U/L ALT (4-49) U/L Alkaline Phosphatase (38-126) U/L Ammonia 65 H (<30) umol/L Total Protein (6.3-8.2) g/dL Albumin (3.5-5.0) g/dL Amylase (30-110) U/L Lipase (23-300) U/L Acetaminophen ug/mL Disposition Clinical Impression: Hyperbilirubinemia, Liver failure Disposition: OTHER INSTITUTION NOT DEFINED Condition: Serious Is patient prescribed a controlled substance at d/c from ED?: No Referrals: None,Stated [Primary Care Provider] - 1-2 days Time of Disposition: 17:37 - Out of Hospital Transfer - Req. Specs Out of Hospital Transfer - Requested Specifics: Other Non-Acute (Transfer to [facility])
[2025-02-25 12:50] LABS: Basophils # (A) 0.05 10*3/uL (0.00-0.10); Basophils % (A) 0.4 %; Eosinophils # (A) 0.02 10*3/uL (0.04-0.35); Eosinophils % (A) 0.2 %; HCT 33.1 % (39.6-50.0); HGB 11.8 g/dL (13.0-17.0); Lymphocytes # (A) 1.33 10*3/uL (0.90-5.00); Lymphocytes % (A) 10.8 %; MCH 36.9 pg (27.0-32.0); MCHC 35.6 g/dL (32.0-37.0); MCV 103.4 fL (80.0-97.0); Monocytes # (A) 1.21 10*3/uL (0.20-1.00); Monocytes % (A) 9.9 %; Neutrophils # (A) 9.58 10*3/uL (1.80-7.70); Neutrophils % (A) 78.0 %; Platelet Count 160 10*3/uL (140-440); RBC 3.20 10*6/uL (4.40-5.60); RDW 15.2 % (11.5-14.5); WBC 12.27 10*3/uL (4.50-10.00)
[2025-02-25 13:03] LABS: ALT 95 U/L (4-49); African American GFR (CKD) 72 (>60 ml/min/1.73 sqM); Amylase 54 U/L (30-110); Anion Gap 18 mmol/L; Blood Urea Nitrogen 23 mg/dL (9-20); Calcium 8.6 mg/dL (8.4-10.2); Carbon Dioxide 16 mmol/L (22-30); Chloride 96 mmol/L (98-107); Glucose 147 mg/dL (74-99); Lipase 245 U/L (23-300); Non-African American GFR(CKD) 63 (>60 ml/min/1.73 sqM); Sodium 130 mmol/L (137-145)
[2025-02-25 13:08] LABS: Lactic Acid, Venous 7.1 mmol/L (0.7-2.0)
[2025-02-25 13:10] LABS: AST 451 U/L (17-59); Albumin 3.3 g/dL (3.5-5.0); Potassium 3.7 mmol/L (3.5-5.1); Total Protein 8.1 g/dL (6.3-8.2)
[2025-02-25 13:11] LABS: Alkaline Phosphatase 207 U/L (38-126)
--- NOTE | 2025-02-25 13:13 | US ---
EXAMINATION TYPE: US gallbladder DATE OF EXAM: 02/25/2025 COMPARISON: NONE CLINICAL INDICATION: Male, 60 years old with history of Jaundice, abdominal distention; Jaundice, dis tention TECHNIQUE: Grayscale and color Doppler imaging of the right upper quadrant was performed. FINDINGS: EXAM MEASUREMENTS: Liver Length: 12.7 cm Gallbladder Wall: 0.2 cm CBD: 0.4 cm Right Kidney: 10.0 x 5.3 x 4.7 cm HOST/HOSTESS HEAD NOTES: Pancreas: Obscured by bowel gas, and enlarged liver Liver: Left lobe enlarged, liver extremely difficult to penetrate, limited evaluation, very small am ount of ascites present at liver periphery Gallbladder: wnl Evidence for sonographic Rosales's sign: No CBD: wnl Right Kidney: No evidence of hydro IMPRESSION: Hepatomegaly and underlying hepatic steatosis. [facility] Kristin Bone, , 02/25/2025 1:10 PM
[2025-02-25] MEDS: SODIUM CHLORIDE 0.9% 500 ML 500 ML IV ONE (13:14)
[2025-02-25] MEDS: SODIUM CHLORIDE 0.9% 1,000 ML IV SCH (13:43)
[2025-02-25 14:25] LABS: INR 1.5 (<1.2); Partial Thromboplastin Time 27.3 sec (22.0-30.0); Prothrombin Time 16.0 sec (10.0-12.5)
[2025-02-25 14:39] LABS: Bilirubin, Delta 5.5 mg/dL (0.0-0.2); Bilirubin,Unconjugated 3.1 mg/dL (0.0-1.1)
[2025-02-25 14:45] LABS: Acetaminophen <10.0 ug/mL
[2025-02-25] MEDS: prednisoLONE ORAL SOLUTION 15MG/5ML CUP PO SCH (18:47)
[2025-02-25] MEDS ORDERED: LORazepam 1 MG/0.5 ML VIAL IV PRN (19:13)
--- NOTE | 2025-02-25 20:12 | P.HPIM ---
History of Present Illness H&P Date: 02/25/25 Chief Complaint: Jaundice and abnormal lab This is a 60-year-old male patient with a past medical history of alcohol abuse and essential hypertension who presents with a chief complaint of skin discoloration and jaundice. Patient reports abdominal distention but no reports of pain . Patient does not follow-up with a physician. No reports of emesis or hematemesis. No reports of hematochezia. Patient drinks around a pint of whiskey daily. No reports of fever or chills. Upon arrival to the ED, patient was tachycardic but blood pressure was stable. Not hypoxic and saturating 98% on room air. Afebrile. Labs done showing WBC of 12.27, hemoglobin of 11.8, platelet 160, PT 16, INR 1.5, sodium 130, serum carbon dioxide of 16 , AG 18 , initial lactic acid of 7.1, repeat lactate 4.6 and last lactate of 3, total bilirubin of 15.6, conjugated bilirubin of 7, unconjugated bilirubin of 3, AST 451, ALT 95, alk phos 207, ammonia level 65, albumin 3.3. Gallbladder ult rasound was done showing hepatomegaly with signs of portal hypertension and small ascites. Patient and liver failure and will be transferred to [facility] for GI and hepatology evaluation. Hospitalist team was consulted for medical management Review of system : Negative except what mentioned in HPI PE: General: Acutely ill Derm: Jaundice Head: atraumatic, normocephalic, symmetric Eyes: Icteric sclera Mouth: no lip lesion, mucus membranes moist Cardiovascular: S1 S2 reg, no murmur, rubs, or gallops Lungs: CTA bilateral, no rales, no accessory muscle use Abdominal: soft, but distended abdomen with concern of ascites . No tenderness or guarding. Appreciate hepatomegaly. Extremities: no gross muscle atrophy, no edema, no contractures Neuro: Alert, Oriented, CNII-XII grossly intact, gait normal Psych: well appearing, appropriate affect Assessment and plan : - Alcoholic hepatitis/decompensated liver cirrhosis/coagulopathy/hyperbilirubinemia and jaundice Patient reports that he drinks a pint of whiskey daily We will keep patient on CIWA protocol Thiamine and folic acid daily Madrey discrimination score 33 which indicates poor prognosis>>> patient started on steroid therapy Child class B Will need hepatology evaluation IV Rocephin for SBP prophylaxis Oral lactulose for elevated ammonia - Hypoosmolar hyponatremia; likely hypervolemic : Patient does appear dry but has significant abd distension with conccern of ascites Will start low dose lasix and watch sodium level every 3 hours -Metabolic acidosis due to lactic acidosis : Serum CO2 of 16 Lactic acid of 7.1 Currently on IV fluid hydration with repeat lactate of 3 Lactic acidosis likely due to liver failure. Low suspicion of sepsis or underlying infection but will need urine analysis. Patient does have signs of ascites and we will keep on SBP prophylaxis for now. No reports of tender -Sinus tachycardia due to alcohol withdrawal : Will keep patient on CIWA protocol CODE STATUS is full code and his prognosis is guarded DVT prophylaxis on scd Disposition : [facility] for further evaluation Time spent : 55 min Thank you for the consult Past Medical History Past Medical History: Hypertension Additional Past Medical History / Comment(s): "sometimes I get out of breath but I don't think it's a problem, just getting old I guess", not currently on antihypertensives History of Any Multi-Drug Resistant Organisms: None Reported Past Surgical History: No Surgical Hx Reported Additional Past Surgical History / Comment(s): colonoscopy 2021 Past Anesthesia/Blood Transfusion Reactions: No Reported Reaction Past Psychological History: No Psychological Hx Reported Smoking Status: Former smoker Past Alcohol Use History: Abuse, Daily Past Drug Use History: Marijuana - Past Family History Mother Family Medical History: No Reported History Medications and Allergies Home Medications Medication Instructions Recorded Confirmed Type Albuterol Inhaler [Ventolin Hfa 2 inh INHALATION TID PRN 08/20/23 08/22/23 History Inhaler] Aspirin [Adult Low Dose Aspirin EC] 81 mg PO DAILY PRN 08/20/23 08/20/23 History [id number] [id number] 2 each PO Q6HR PRN 08/20/23 08/20/23 History [Excedrin] Allergies Allergy/AdvReac Type Severity Reaction Status Date / Time No Known Allergies Allergy Verified 02/25/25 11:53 Physical Exam Vitals: Vital Signs Temp Pulse Resp BP Pulse Ox 02/25/25 18:49 101 H 18 117/68 99 02/25/25 17:15 101 H 16 107/62 95 02/25/25 14:32 102 H 16 128/73 98 02/25/25 13:00 103 H 16 125/80 98 02/25/25 11:50 98 F 120 H 20 123/75 98 Intake and Output 02/25/25 02/25/25 02/25/25 06:59 14:59 22:59 Other: Weight 65.771 kg Results CBC & Chem 7: 02/25/25 12:30 02/25/25 12:30 Labs: Abnormal Lab Results - Last 24 Hours (Table) 02/25/25 02/25/25 02/25/25 Range/Units 12:30 12:30 12:30 WBC 12.27 H (4.50-10.00) 10*3/uL RBC 3.20 L (4.40-5.60) 10*6/uL Hgb 11.8 L (13.0-17.0) g/dL Hct 33.1 L (39.6-50.0) % MCV 103.4 H (80.0-97.0) fL MCH 36.9 H (27.0-32.0) pg Immature Gran # 0.08 H (0.00-0.04) 10*3/uL Neutrophils # 9.58 H (1.80-7.70) 10*3/uL Monocytes # 1.21 H (0.20-1.00) 10*3/uL Eosinophils # 0.02 L (0.04-0.35) 10*3/uL PT 16.0 H (10.0-12.5) sec INR 1.5 H (<1.2) Sodium 130 L (137-145) mmol/L Chloride 96 L (98-107) mmol/L Carbon Dioxide 16 L (22-30) mmol/L BUN 23 H (9-20) mg/dL Glucose 147 H (74-99) mg/dL Plasma Lactic Acid Fly (0.7-2.0) mmol/L Total Bilirubin 15.6 H* (0.2-1.3) mg/dL Conjugated Bilirubin 7.0 H (0.0-0.3) mg/dL Unconjugated Bilirubin 3.1 H (0.0-1.1) mg/dL Delta Bilirubin 5.5 H (0.0-0.2) mg/dL AST 451 H (17-59) U/L ALT 95 H (4-49) U/L Alkaline Phosphatase 207 H (38-126) U/L Ammonia (<30) umol/L Albumin 3.3 L (3.5-5.0) g/dL 02/25/25 02/25/25 02/25/25 Range/Units 12:30 15:17 18:25 WBC (4.50-10.00) 10*3/uL RBC (4.40-5.60) 10*6/uL Hgb (13.0-17.0) g/dL Hct (39.6-50.0) % MCV (80.0-97.0) fL MCH (27.0-32.0) pg Immature Gran # (0.00-0.04) 10*3/uL Neutrophils # (1.80-7.70) 10*3/uL Monocytes # (0.20-1.00) 10*3/uL Eosinophils # (0.04-0.35) 10*3/uL PT (10.0-12.5) sec INR (<1.2) Sodium (137-145) mmol/L Chloride (98-107) mmol/L Carbon Dioxide (22-30) mmol/L BUN (9-20) mg/dL Glucose (74-99) mg/dL Plasma Lactic Acid Fly 7.1 H* 4.6 H* 3.0 H* (0.7-2.0) mmol/L Total Bilirubin (0.2-1.3) mg/dL Conjugated Bilirubin (0.0-0.3) mg/dL Unconjugated Bilirubin (0.0-1.1) mg/dL Delta Bilirubin (0.0-0.2) mg/dL AST (17-59) U/L ALT (4-49) U/L Alkaline Phosphatase (38-126) U/L Ammonia 65 H (<30) umol/L Albumin (3.5-5.0) g/dL
[2025-02-25] MEDS: SODIUM BICARB 8.4% 50 ML SYR (1 MEQ/ML) IV STA (20:33)
[2025-02-25] MEDS: LACTULOSE 20 GM/30 ML CUP PO ONE (20:33)
[2025-02-25] MEDS: FUROSEMIDE 10 MG/ML 2 ML VIAL IV STA (23:08)
[2025-02-25 23:53] LABS: African American GFR (CKD) 84 (>60 ml/min/1.73 sqM); Anion Gap 16 mmol/L; Blood Urea Nitrogen 24 mg/dL (9-20); Calcium 8.3 mg/dL (8.4-10.2); Carbon Dioxide 20 mmol/L (22-30); Chloride 94 mmol/L (98-107); Glucose 140 mg/dL (74-99); Non-African American GFR(CKD) 73 (>60 ml/min/1.73 sqM); Potassium 3.5 mmol/L (3.5-5.1); Sodium 130 mmol/L (137-145)
[2025-02-26 00:21] LABS: Amorphous Sediment,Urine Occasional /hpf; Bacteria,Urine Rare /hpf; Hyaline Casts,Urine 43 /lpf (0-2); Mucus,Urine Few /hpf; RBC,Urine <1 /hpf (0-5); Squamous Epithelial Cell,Urine 1 /hpf (0-4); WBC,Urine 2 /hpf (0-5)
[2025-02-26 00:28] LABS: Color,Urine Dark Orange
[2025-02-26 07:00] LABS: WBC 11.05 10*3/uL (4.50-10.00)
[2025-02-26 07:01] LABS: HCT 30.3 % (39.6-50.0); HGB 10.9 g/dL (13.0-17.0); MCH 36.8 pg (27.0-32.0); MCHC 36.0 g/dL (32.0-37.0); MCV 102.4 fL (80.0-97.0); Platelet Count 153 10*3/uL (140-440); RBC 2.96 10*6/uL (4.40-5.60); RDW 15.2 % (11.5-14.5)
[2025-02-26 07:19] LABS: African American GFR (CKD) 79 (>60 ml/min/1.73 sqM); Anion Gap 14 mmol/L; Blood Urea Nitrogen 25 mg/dL (9-20); Calcium 7.5 mg/dL (8.4-10.2); Carbon Dioxide 20 mmol/L (22-30); Chloride 99 mmol/L (98-107); Glucose 147 mg/dL (74-99); Non-African American GFR(CKD) 69 (>60 ml/min/1.73 sqM); Potassium 3.2 mmol/L (3.5-5.1); Sodium 133 mmol/L (137-145)
[2025-02-26] MEDS: THIAMINE 100 MG TAB PO SCH (08:30)
[2025-02-26 11:11] LABS: ALT 99.0 U/L (4-49); AST 439.0 U/L (17-59); Albumin 2.9 g/dL (3.5-5.0); Alkaline Phosphatase 186.0 U/L (38-126); Bilirubin, Delta 5.2 mg/dL (0.0-0.2); Bilirubin,Unconjugated 2.4 mg/dL (0.0-1.1); Total Protein 7.3 g/dL (6.3-8.2)
[2025-02-26] MEDS: POTASSIUM CHLORIDE ER 20 MEQ TAB.ER PO STA (11:22)
--- NOTE | 2025-02-26 15:22 | P.PN ---
Subjective Progress Note Date: 02/26/25 Hospital Course: This is a 60-year-old male patient with a past medical history of alcohol abuse and essential hypertension who presents with a chief complaint of skin discoloration and jaundice. Patient reports abdominal distention but no reports of pain. Patient does not follow-up with a physician. No reports of emesis or hematemesis. No reports of hematochezia. Patient drinks around a pint of whiskey daily. No reports of fever or chills. Upon arrival to the ED, patient was tachycardic but blood pressure was stable. Not hypoxic and saturating 98% on room air. Afebrile. Labs done showing WBC of 12.27, hemoglobin of 11.8, platelet 160, PT 16, INR 1.5, sodium 130, serum carbon dioxide of 16, AG 18 , initial lactic acid of 7.1, repeat lactate 4.6 and last lactate of 3, total bilirubin of 15.6, conjugated bilirubin of 7, unconjugated bilirubin of 3, AST 451, ALT 95, alk phos 207, ammonia level 65, albumin 3.3. Gallbladder ultrasound was done showing hepatomegaly with signs of portal hypertension and small ascites. Patient has liver failure and will be transferred to [facility] for GI and hepa tology evaluation. Hospitalist team was consulted for medical management. Subjective: Patient seen and examined at bedside. No acute events overnight. This morning, pt has no complaints. He denies fevers, chills, CP, SOB, N/V, abdominal pain. Pertinent positives and negatives as discussed above, a complete review of systems was performed and all other systems are negative. Vitals: Signs Reviewed Physical Exam: General: Ill-appearing, no distress, appears at stated age Derm: Jaundice, warm, dry, intact Head: atraumatic, normocephalic, symmetric Eyes: EOMI, icteric sclera Mouth: no lip lesion, mucus membranes moist Cardiovascular: S1 S2 reg, no murmur, rubs, or gallops Lungs: CTA bilateral, no rhonchi, no rales, no accessory muscle use Abdominal: Soft, distended with no tenderness to palpation, no guarding Extremities: no gross muscle atrophy, no edema, no contractures Neuro: Alert, Oriented, CNII-XII grossly intact, gait normal Psych: well appearing, appropriate affect Data Received Today: Pertinent Labs: WBC 11.05, hgb 10.9, sodium 133, potassium 3.2, BUN 25, Cr 1.16, total bilirubin 14.5, AST 439, ALT 99 Imaging: Gallbladder US - Heptomegaly and underlying hepatic steatosis. Very small amount of ascites present at liver periphery. Assessment and Plan: Alcoholic hepatitis, decompensated liver cirrohsis, coagulopathy, hyperbilirubinemia with jaundice Leukocytosis, concern for SBP vs other source of infection Ascites, small amount Metabolic acidosis, lactic acidosis - Child-pierce is class B - Maddrey's DF score initially 33, poor prognosis and steroids were started - Continue prednisolone 40 mg daily (day 2) - Continue thiamine, folic acid daily - Continue CIWA protocol - Continue 2g IV ceftriaxone for suspected SBP - Discontinued fluids as pt appears euvolemic - Repeat hepatic function labs in afternoon - Continue to monitor with CBC, CMP - Pt is waiting for a bed at [facility]. Hypoosmolar hyponatremia; likely hypervolemic - improving - Discontinued Lasix as sodium has improved - Will continue to monitor sodium Hypokalemia - Gave 40 mEq of potassium today - Will continue to monitor BUN/Cr elevated Risk for hepatorenal syndrome - Continue to monitor Anticipated discharge place: [facility] Anticipated discharge time: As soon as bed is available. Keily Lawrence DO PGY-1 IM Dictation was produced using [employer] dictation software. please excuse any grammatical, word or spelling errors. I have seen and evaluated the patient today. Discussed with the resident and agree with the residents finding and plan as documented in the resident's note. Changes highlighted in blue font. Objective - Vital Signs Vital signs: Vital Signs Temp 97.9 F 02/26/25 08:25 Pulse 99 02/26/25 11:25 Resp 18 02/26/25 11:25 BP 136/78 02/26/25 11:25 Pulse Ox 100 02/26/25 11:25 FiO2 Intake & Output 02/25/25 02/26/25 02/26/25 18:59 06:59 18:59 Weight 65.771 kg - Labs CBC & Chem 7: 02/26/25 06:33 02/26/25 06:33 Labs: Abnormal Lab Results - Last 24 Hours (Table) 02/25/25 02/25/25 02/25/25 Range/Units 12:30 12:30 15:17 WBC (4.50-10.00) 10*3/uL RBC (4.40-5.60) 10*6/uL Hgb (13.0-17.0) g/dL Hct (39.6-50.0) % MCV (80.0-97.0) fL MCH (27.0-32.0) pg PT 16.0 H (10.0-12.5) sec INR 1.5 H (<1.2) Sodium 130 L (137-145) mmol/L Potassium (3.5-5.1) mmol/L Chloride 96 L (98-107) mmol/L Carbon Dioxide 16 L (22-30) mmol/L BUN 23 H (9-20) mg/dL Glucose 147 H (74-99) mg/dL Plasma Lactic Acid Fly 4.6 H* (0.7-2.0) mmol/L Calcium (8.4-10.2) mg/dL Total Bilirubin 15.6 H* (0.2-1.3) mg/dL Conjugated Bilirubin 7.0 H (0.0-0.3) mg/dL Unconjugated Bilirubin 3.1 H (0.0-1.1) mg/dL Delta Bilirubin 5.5 H (0.0-0.2) mg/dL AST 451 H (17-59) U/L ALT 95 H (4-49) U/L Alkaline Phosphatase 207 H (38-126) U/L Ammonia (<30) umol/L Albumin 3.3 L (3.5-5.0) g/dL Amorphous Sediment (None) /hpf Urine Bacteria (None) /hpf Hyaline Casts (0-2) /lpf Urine Mucus (None) /hpf 02/25/25 02/25/25 02/25/25 Range/Units 18:25 21:27 23:14 WBC (4.50-10.00) 10*3/uL RBC (4.40-5.60) 10*6/uL Hgb (13.0-17.0) g/dL Hct (39.6-50.0) % MCV (80.0-97.0) fL MCH (27.0-32.0) pg PT (10.0-12.5) sec INR (<1.2) Sodium (137-145) mmol/L Potassium (3.5-5.1) mmol/L Chloride (98-107) mmol/L Carbon Dioxide (22-30) mmol/L BUN (9-20) mg/dL Glucose (74-99) mg/dL Plasma Lactic Acid Fly 3.0 H* 3.8 H* (0.7-2.0) mmol/L Calcium (8.4-10.2) mg/dL Total Bilirubin (0.2-1.3) mg/dL Conjugated Bilirubin (0.0-0.3) mg/dL Unconjugated Bilirubin (0.0-1.1) mg/dL Delta Bilirubin (0.0-0.2) mg/dL AST (17-59) U/L ALT (4-49) U/L Alkaline Phosphatase (38-126) U/L Ammonia (<30) umol/L Albumin (3.5-5.0) g/dL Amorphous Sediment Occasional H (None) /hpf Urine Bacteria Rare H (None) /hpf Hyaline Casts 43 H (0-2) /lpf Urine Mucus Few H (None) /hpf 02/25/25 02/26/25 02/26/25 Range/Units 23:14 06:33 06:33 WBC 11.05 H (4.50-10.00) 10*3/uL RBC 2.96 L (4.40-5.60) 10*6/uL Hgb 10.9 L (13.0-17.0) g/dL Hct 30.3 L (39.6-50.0) % MCV 102.4 H (80.0-97.0) fL MCH 36.8 H (27.0-32.0) pg PT (10.0-12.5) sec INR (<1.2) Sodium 130 L 133 L (137-145) mmol/L Potassium 3.2 L (3.5-5.1) mmol/L Chloride 94 L (98-107) mmol/L Carbon Dioxide 20 L 20 L (22-30) mmol/L BUN 24 H 25 H (9-20) mg/dL Glucose 140 H 147 H (74-99) mg/dL Plasma Lactic Acid Fly (0.7-2.0) mmol/L Calcium 8.3 L 7.5 L (8.4-10.2) mg/dL Total Bilirubin (0.2-1.3) mg/dL Conjugated Bilirubin (0.0-0.3) mg/dL Unconjugated Bilirubin (0.0-1.1) mg/dL Delta Bilirubin (0.0-0.2) mg/dL AST (17-59) U/L ALT (4-49) U/L Alkaline Phosphatase (38-126) U/L Ammonia (<30) umol/L Albumin (3.5-5.0) g/dL Amorphous Sediment (None) /hpf Urine Bacteria (None) /hpf Hyaline Casts (0-2) /lpf Urine Mucus (None) /hpf 02/26/25 02/26/25 Range/Units 06:33 10:48 WBC (4.50-10.00) 10*3/uL RBC (4.40-5.60) 10*6/uL Hgb (13.0-17.0) g/dL Hct (39.6-50.0) % MCV (80.0-97.0) fL MCH (27.0-32.0) pg PT (10.0-12.5) sec INR (<1.2) Sodium (137-145) mmol/L Potassium (3.5-5.1) mmol/L Chloride (98-107) mmol/L Carbon Dioxide (22-30) mmol/L BUN (9-20) mg/dL Glucose (74-99) mg/dL Plasma Lactic Acid Fly (0.7-2.0) mmol/L Calcium (8.4-10.2) mg/dL Total Bilirubin 14.5 H (0.2-1.3) mg/dL Conjugated Bilirubin 6.9 H (0.0-0.3) mg/dL Unconjugated Bilirubin 2.4 H (0.0-1.1) mg/dL Delta Bilirubin 5.2 H (0.0-0.2) mg/dL AST 439 H (17-59) U/L ALT 99 H (4-49) U/L Alkaline Phosphatase 186 H (38-126) U/L Ammonia 32 H (<30) umol/L Albumin 2.9 L (3.5-5.0) g/dL Amorphous Sediment (None) /hpf Urine Bacteria (None) /hpf Hyaline Casts (0-2) /lpf Urine Mucus (None) /hpf
[2025-02-27 03:08] VITALS: TEMP 97.7
[2025-02-27 06:21] LABS: Basophils # (A) 0.02 10*3/uL (0.00-0.10); Basophils % (A) 0.1 %; Eosinophils # (A) 0.00 10*3/uL (0.04-0.35); Eosinophils % (A) 0.0 %; HCT 31.1 % (39.6-50.0); HGB 11.5 g/dL (13.0-17.0); Lymphocytes # (A) 1.45 10*3/uL (0.90-5.00); Lymphocytes % (A) 8.1 %; MCH 37.8 pg (27.0-32.0); MCHC 37.0 g/dL (32.0-37.0); MCV 102.3 fL (80.0-97.0); Monocytes # (A) 1.63 10*3/uL (0.20-1.00); Monocytes % (A) 9.2 %; Neutrophils # (A) 14.58 10*3/uL (1.80-7.70); Neutrophils % (A) 81.9 %; Platelet Count 172 10*3/uL (140-440); RBC 3.04 10*6/uL (4.40-5.60); RDW 15.1 % (11.5-14.5); WBC 17.80 10*3/uL (4.50-10.00)
[2025-02-27 06:27] LABS: INR 1.8 (<1.2); Prothrombin Time 18.1 sec (10.0-12.5)
[2025-02-27 06:52] LABS: ALT 108 U/L (4-49); AST 425 U/L (17-59); African American GFR (CKD) 73 (>60 ml/min/1.73 sqM); Albumin 2.8 g/dL (3.5-5.0); Alkaline Phosphatase 185 U/L (38-126); Anion Gap 14 mmol/L; Blood Urea Nitrogen 38 mg/dL (9-20); Calcium 8.4 mg/dL (8.4-10.2); Carbon Dioxide 22 mmol/L (22-30); Chloride 95 mmol/L (98-107); Glucose 141 mg/dL (74-99); Non-African American GFR(CKD) 63 (>60 ml/min/1.73 sqM); Potassium 3.3 mmol/L (3.5-5.1); Sodium 131 mmol/L (137-145); Total Protein 7.3 g/dL (6.3-8.2)
[2025-02-27] MEDS: LORazepam 1 MG/0.5 ML VIAL IV PRN ×2 (08:46→17:49)
[2025-02-27] MEDS: POTASSIUM CHLORIDE ER 20 MEQ TAB.ER PO STA (10:04)
--- NOTE | 2025-02-27 14:36 | P.PN ---
Subjective Progress Note Date: 02/27/25 Hospital Course: This is a 60-year-old male patient with a past medical history of alcohol abuse and essential hypertension who presents with a chief complaint of skin discoloration and jaundice. Patient reports abdominal distention but no reports of pain. Patient does not follow-up with a physician. No reports of emesis or hematemesis. No reports of hematochezia. Patient drinks around a pint of whiskey daily. No reports of fever or chills. Upon arrival to the ED, patient was tachycardic but blood pressure was stable. Not hypoxic and saturating 98% on room air. Afebrile. Labs done showing WBC of 12.27, hemoglobin of 11.8, platelet 160, PT 16, INR 1.5, sodium 130, serum carbon dioxide of 16, AG 18 , initial lactic acid of 7.1, repeat lactate 4.6 and last lactate of 3, total bilirubin of 15.6, conjugated bilirubin of 7, unconjugated bilirubin of 3, AST 451, ALT 95, alk phos 207, ammonia level 65, albumin 3.3. Gallbladder ultrasound was done showing hepatomegaly with signs of portal hypertension and small ascites. Patient has liver failure and will be transferred to [facility] for GI and hepa tology evaluation. Hospitalist team was consulted for medical management. Subjective: Patient seen and examined at bedside. Overnight, pt was confused. This morning, pt is still confused and believes he is at the bar and needs to go home. He denies any complaints of pain at this time. He denies N/V, abdominal pain. Pertinent positives and negatives as discussed above, a complete review of [facility] was performed and all other systems are negative. Vitals: Signs Reviewed Physical Exam: General: Ill-appearing, no distress, appears at stated age Derm: Jaundice, warm, dry, intact Head: atraumatic, normocephalic, symmetric Eyes: EOMI, icteric sclera Mouth: no lip lesion, mucus membranes moist Cardiovascular: tachycardic, S1 S2 reg, no murmur, rubs, or gallops Lungs: CTA bilateral, no rhonchi, no rales, no accessory muscle use Abdominal: Soft, distended with no tenderness to palpation, no guarding Extremities: no gross muscle atrophy, no edema, no contractures Neuro: Alert and only oriented to self, CNII-XII grossly intact, gait normal Psych: well appearing, appropriate affect Data Received Today: Pertinent Labs: WBC 17.8, hgb 11.5, sodium 131, potassium 3.3, BUN 38, Cr 1.24, total bilirubin 14.0, AST 425, ALT 108 Imaging: None today. Assessment and Plan: Alcoholic hepatitis, decompensated liver cirrohsis, coagulopathy, hyperbilirubinemia with jaundice Leukocytosis, concern for SBP vs other source of infection Ascites, small amount Metabolic acidosis, lactic acidosis Encephalopathy - likely hepatic encephalopathy versus alcohol withdrawal - Maddrey's DF score initially 33, poor prognosis and steroids were started. Child-pierce score class B - MELD Na score (02/27) - 28 points - Continue prednisolone 40 mg daily (day 3) - Continue thiamine, folic acid daily - Continue CIWA protocol, 1mg given today - Started lactulose 20 gm po TID - Continue 2g IV ceftriaxone for suspected SBP - Continue to monitor with CBC, CMP, PT/INR - Pt is waiting for a bed at [facility]. Hypoosmolar hyponatremia; likely hypervolemic - improving - Discontinued Lasix as sodium has improved - Will continue to monitor sodium Hypokalemia- improving - Gave 40 mEq of potassium today - Will continue to monitor BUN/Cr elevated Risk for hepatorenal syndrome - Continue to monitor Anticipated discharge place: [facility] Anticipated discharge time: As soon as bed is available. Keily Lawrence DO PGY-1 IM Dictation was produced using [employer] dictation software. please excuse any grammatical, word or spelling errors. I have seen and evaluated the patient today. Discussed with the resident and agree with the residents finding and plan as documented in the resident's note. Changes highlighted in blue font. Objective - Vital Signs Vital signs: Vital Signs Temp 97.7 F 02/27/25 03:05 Pulse 119 H 02/27/25 08:44 Resp 18 02/27/25 08:44 BP 137/86 02/27/25 08:44 Pulse Ox 99 02/27/25 08:44 FiO2 - Labs CBC & Chem 7: 02/27/25 06:13 02/27/25 06:13 Labs: Abnormal Lab Results - Last 24 Hours (Table) 02/27/25 02/27/25 02/27/25 Range/Units 06:13 06:13 06:13 WBC 17.80 H (4.50-10.00) 10*3/uL RBC 3.04 L (4.40-5.60) 10*6/uL Hgb 11.5 L (13.0-17.0) g/dL Hct 31.1 L (39.6-50.0) % MCV 102.3 H (80.0-97.0) fL MCH 37.8 H (27.0-32.0) pg Immature Gran # 0.12 H (0.00-0.04) 10*3/uL Neutrophils # 14.58 H (1.80-7.70) 10*3/uL Monocytes # 1.63 H (0.20-1.00) 10*3/uL Eosinophils # 0.00 L (0.04-0.35) 10*3/uL PT 18.1 H (10.0-12.5) sec INR 1.8 H (<1.2) Sodium 131 L (137-145) mmol/L Potassium 3.3 L (3.5-5.1) mmol/L Chloride 95 L (98-107) mmol/L BUN 38 H (9-20) mg/dL Glucose 141 H (74-99) mg/dL Plasma Lactic Acid Fly (0.7-2.0) mmol/L Total Bilirubin 14.0 H (0.2-1.3) mg/dL AST 425 H (17-59) U/L ALT 108 H (4-49) U/L Alkaline Phosphatase 185 H (38-126) U/L Albumin 2.8 L (3.5-5.0) g/dL 02/27/25 02/27/25 Range/Units 06:13 09:47 WBC (4.50-10.00) 10*3/uL RBC (4.40-5.60) 10*6/uL Hgb (13.0-17.0) g/dL Hct (39.6-50.0) % MCV (80.0-97.0) fL MCH (27.0-32.0) pg Immature Gran # (0.00-0.04) 10*3/uL Neutrophils # (1.80-7.70) 10*3/uL Monocytes # (0.20-1.00) 10*3/uL Eosinophils # (0.04-0.35) 10*3/uL PT (10.0-12.5) sec INR (<1.2) Sodium (137-145) mmol/L Potassium (3.5-5.1) mmol/L Chloride (98-107) mmol/L BUN (9-20) mg/dL Glucose (74-99) mg/dL Plasma Lactic Acid Fly 3.9 H* 5.5 H* (0.7-2.0) mmol/L Total Bilirubin (0.2-1.3) mg/dL AST (17-59) U/L ALT (4-49) U/L Alkaline Phosphatase (38-126) U/L Albumin (3.5-5.0) g/dL
[2025-02-27] MEDS: LACTULOSE 20 GM/30 ML CUP PO SCH (15:17)
[2025-02-27 19:17] VITALS: RESP 17
[2025-02-27 20:21] VITALS: BP 131/88; PULSE 90
== END 2025-02-27 20:21 | disposition other institution (70) ==
LOC: EC 11:48
DX: K72.90 Hepatic failure, unspecified without coma (principal); E80.7 Disorder of bilirubin metabolism, unspecified; F10.939 Alcohol use, unspecified with withdrawal, unspecified; Z87.891 Personal history of nicotine dependence; Y90.9 Presence of alcohol in blood, level not specified
CPT/HCPCS: 99285 ×2; 96365 ×2; 96375 ×4; 96361; 96366 ×4; 96376 ×2; 36415 ×3; 80053 ×2; 80048 ×2; 80076; 82140 ×2; 82150; 82248; 83605 ×2; 83690; 85025 ×2; 85027; 85610 ×2; 85730; 81001; 80143; 76705; J2060; J0696 ×3; J7510 ×3; J1938